=== PATIENT | male | born 1970 | race Caucasian/White ===

== ENCOUNTER 2023-10-26 11:30 | Day surgery (SDC) | payer OTHER, SELFPAY ==
[2023-10-26] VITALS (8 sets, daily range): BP systolic 100–145; BP diastolic 83–96; BMI 52.2
[2023-10-26] MEDS: NSS 440 ML IV (12:19)
[2023-10-26] MEDS: LASIX 20 MG IV (14:16)
--- NOTE | 2023-10-26 14:23 | ITS.CL.CATH ---
Auto Glass Installer - Catheterization
Cardiac Catheterization
Procedure Report:
LEFT HEART CATHETERIZATION
Date of Procedure: October 26, 2023
Procedures performed:
1: Coronary angiography
2: Left ventriculography
Primary Care Physician: Dr. Edwar Sandoval
Primary Bridges And Buildings Supervisor: Dr. Sukh Guzman
INDICATION: The patient is a 53-year-old man with a past medical history significant for morbid obesity and hypertension who presents with new exertional chest discomfort. Echocardiography performed on October 20 showed severe aortic valvular
stenosis with a mean gradient of 46 mmHg and preserved LV systolic function with severe left ventricular hypertrophy. The patient does report that he has been told he had a murmur in the past however has not had prior echoes.
ACCESS: The patient was prepped and draped in usual sterile fashion. A 6 Turkmen sheath was placed in the right radial artery using the Seldinger over the wire technique.
HEMODYNAMIC FINDINGS (mmHg):
LV(s/d,EDP): 223/18, 36
Ao(s/d,m): 120/90, 107
Aortic valve mean pullback gradient: 68 mmHg
ANGIOGRAPHIC FINDINGS:
Single-plane Left Ventriculography in SAGASTUME Projection: Preserved LV systolic function with no clear regional wall motion abnormality. Visually estimated ejection fraction 55%. No significant mitral gravitation.
Coronary Angiography:
Dominance: Right
Left Main: Normal
Left Anterior Descending: The left anterior descending artery is a medium caliber vessel that gives rise to a large high first diagonal branch and a small second diagonal branch. These vessels are patent without focal obstructive disease.
Ramus intermedius: Small to medium caliber, widely patent.
Left Circumflex: The left circumflex is a nondominant system that gives rise to 1 major branching obtuse marginal branch. This vessel is widely patent with no focal disease.
Right Coronary: The right coronary artery is a large-caliber dominant vessel that gives rise to a large caliber posterior descending artery and very large caliber posterior left ventricular branch system. These vessels are all widely patent.
Fluoroscopy Time (min): 6.6
Radiation Dose (mGy): 661
DAP (Gy.cm2): 62
Closure device: None. A TR band was applied for hemostasis at the right wrist.
Complications: None.
ASSESSMENT:
1: Normal coronary arteries.
2: Severe aortic valve stenosis with elevated left ventricular filling pressures.
CONCLUSIONS and RECOMMENDATIONS:
1: Expedited CT surgical evaluation for CABG. With his BMI over 50 he is high risk for everything. Given his young age I feel the optimal therapy would be a mechanical aortic valve replacement.
Gerry Quintero M.D.
Copy to: Dr. Edwar Sandoval
== END 2023-10-26 16:45 | disposition home or self-care (01) ==
LOC: CATH 11:30
PROVIDERS: ATTENDING PHYSICIAN Internal Medicine Interventional Cardiology; OTHER PHYSICIAN Internal Medicine Cardiovascular Disease; PRIMARYCARE PHYSICIAN Family Medicine; REFERRING PHYSICIAN Internal Medicine Cardiovascular Disease
DX: I35.0 Nonrheumatic aortic (valve) stenosis (principal); R07.89 Other chest pain; E66.01 Morbid (severe) obesity due to excess calories; I51.7 Cardiomegaly; Z68.43 Body mass index [BMI] 50.0-59.9, adult
CPT/HCPCS: 93458; C1769; C1894; Q9967

== ENCOUNTER 2023-12-07 04:59 | Inpatient (IN) | payer OTHER, SELFPAY ==
[2023-11-24 08:29] VITALS: BMI 52.1
[2023-11-24 08:57] LABS: % Basophils 0.7 % (0-2); % Eosinophils 3.3 % (0-6); % Immature Granulocytes 0.5 % (0-0.5); % Lymphocytes 28.7 % (20.5-51.1); % Neutrophils 56.8 % (42.2-75.2); Absolute Basophils 0.1 10^3/uL (0-0.2); Absolute Eosinophils 0.3 10^3/uL (0-0.7); Absolute Lymphocytes 2.4 10^3/uL (1.2-3.4); Absolute Monocytes 0.8 10^3/uL (0.1-0.6); Absolute Neutrophils 4.7 10^3/uL (1.4-6.5); Hematocrit 40.3 % (39.0-52.0); Hemoglobin 13.8 g/dL (13.0-18.0); Mean Corp Hgb Conc. 34.2 g/dL (33.0-37.0); Mean Corpuscular Hgb 30.3 pg (27.0-31.0); Mean Corpuscular Volume 88.4 fL (80.0-94.0); Nucleated Red Blood Cells % 0 % (-); Platelet Count 240 10^3/uL (130-400); Red Blood Cell Count 4.56 10^6/uL (4.70-6.10); Red Cell Dist. Width 13.2 % (11.5-14.5); White Blood Cell Count 8.3 10^3/uL (4.8-10.8)
[2023-11-24 09:11] LABS: INR 1.06; PT 13.8 Sec (11.4-14.6)
[2023-11-24 09:12] LABS: APTT 34.4 Sec (23.4-35.0)
[2023-11-24 09:19] LABS: ALT (SGPT) 84 U/L (0-50); AST (SGOT) 41 U/L (17-59); Albumin 4.4 g/dl (3.5-5.0); Alkaline Phosphatase 73 U/L (38-126); Blood Urea Nitrogen 18 mg/dl (9-20); Calcium 9.4 mg/dl (8.4-10.2); Carbon Dioxide 29 mmol/L (22-30); Chloride 101 mmol/L (98-107); Direct Bilirubin 0.2 mg/dl (0.0-0.4); Estimated Creatinine Clearance > 125 ml/min; Glucose 146 mg/dl (70-99); Potassium 4.1 mmol/L (3.5-5.1); Sodium 139 mmol/L (135-145); Total Bilirubin 0.4 mg/dl (0.2-1.3); Total Protein 7.5 g/dl (6.3-8.2); eGFR > 60.00
--- NOTE | 2023-11-24 09:59 | CM ---
Chart reviewed. Reviewed preoperative and postoperative instructions and restrictions. Gave patient 2 soaps, along with showering guidelines. Patient is independent of ADLS, lives with his mother in a 2 STH, 2 YARIEL, 0 DME. Patient does have a
CPAP machine, he will bring with him when he comes in for surgery. Patient is agreeable to a home visit with CT Transitional RN. Plan is for the patient to return home with CT Transitional RN.
[2023-11-24 10:01] LABS: Urine Albumin 2+ (Neg - Trace); Urine Bilirubin Negative (Negative); Urine Character Clear (Clear); Urine Color Yellow; Urine Glucose Negative (Negative); Urine Ketone Negative (Negative); Urine Leukocyte Negative (Negative); Urine Nitrite Negative (Negative); Urine Occult Blood Negative (Negative); Urine Urobilinogen Negative (Neg - 1+)
[2023-11-24 11:15] LABS: Urine Red Blood Cell None Seen /HPF (0-2); Urine Squamous Cell 0-2 /LPF (Few); Urine White Cell None Seen /HPF (0-5)
[2023-11-24 12:02] LABS: Glycohemoglobin (HgbA1c) 7.3 % (4.0-5.6)
[2023-12-07 05:12] VITALS: BP 149/95
[2023-12-07 05:30] VITALS: BP 139/96
[2023-12-07 05:31] VITALS: BMI 50.9
[2023-12-07] MEDS: LOPRESSOR 25 MG PO (05:56)
[2023-12-07] MEDS: MAGNESIUM OXIDE 500 MG PO (05:56)
[2023-12-07] MEDS: PROTONIX 40 MG PO (05:56)
[2023-12-07] MEDS: BACTROBAN 2% OINTMENT 1 APPLIC NASAL ×2 (05:59→20:02)
--- NOTE | 2023-12-07 06:09 | PTCARENOTE ---
pt admitted to 2264. Admits to 2 showers and NPO since midnight. clipped, washed with CHG wipes. full admission completed. pt does admit to having 6-10 drinks every weekend. CTPA notified. all questions answered, preop teaching given. awaiting cvor
--- NOTE | 2023-12-07 06:19 | W.CVOR.SURPR ---
CVOR Surgeon Immed Pre Op
-
I have examined this patient prior to performance of the scheduled procedure.
The patient's condition is unchanged from the time of the dictated/written History and
Physical and the patient is able to undergo the scheduled procedure.
Pt. opted for a MECHANICAL AVR
[2023-12-07 07:04] LABS: ACT+ - POC 107 Seconds (82-134)
[2023-12-07 07:06] LABS: Glucose - POC 157 mg/dl (65-99); HCO3 - POC 27 mmol/L (21-29); Hematocrit - POC 39 % PCV (42-52); Hemodilution- POC Yes; Hemoglobin Calculated - POC 13.2; O2 Saturation %Calculated-POC 99.4 5 (92-96); PCO2 - POC 52 mmHg (35-45); PO2 - POC 171 mmHg (80-100); Potassium - POC 3.4 mmol/L (3.6-5.0); Sodium - POC 144 mmol/L (135-145); pH - POC 7.32 (7.35-7.45)
[2023-12-07 07:20] LABS: Urine Albumin 2+ (Neg - Trace); Urine Bilirubin Negative (Negative); Urine Character Slightly Cloudy (Clear); Urine Color Yellow; Urine Glucose Negative (Negative); Urine Ketone Trace (Negative); Urine Leukocyte Negative (Negative); Urine Nitrite Negative (Negative); Urine Occult Blood Negative (Negative); Urine Specific Gravity 1.025 (<1.030); Urine Urobilinogen Negative (Neg - 1+)
[2023-12-07 08:28] LABS: Urine Bacteria Few (Negative); Urine Red Blood Cell 0-2 /HPF (0-2)
[2023-12-07 08:54] LABS: ACT+ - POC 788 Seconds (82-134)
[2023-12-07 09:22] LABS: B.E. - POC 0.8 mmol/L; Glucose - POC 209 mg/dl (65-99); HCO3 - POC 26 mmol/L (21-29); Hematocrit - POC 28 % PCV (42-52); Hemodilution- POC Yes; Hemoglobin Calculated - POC 9.7; Ionized Calcium - POC 1.05 mmol/L (1.12-1.27); O2 Saturation %Calculated-POC 98.9 5 (92-96); PCO2 - POC 44 mmHg (35-45); PO2 - POC 133 mmHg (80-100); Sodium - POC 139 mmol/L (135-145); pH - POC 7.38 (7.35-7.45)
[2023-12-07 09:31] LABS: ACT+ - POC 735 Seconds (82-134)
[2023-12-07 09:54] LABS: B.E. - POC -0.1 mmol/L; Glucose - POC 208 mg/dl (65-99); HCO3 - POC 25 mmol/L (21-29); Hematocrit - POC 33 % PCV (42-52); Hemodilution- POC Yes; Hemoglobin Calculated - POC 11.2; Ionized Calcium - POC 1.09 mmol/L (1.12-1.27); O2 Saturation %Calculated-POC 99.8 5 (92-96); PCO2 - POC 43 mmHg (35-45); PO2 - POC 218 mmHg (80-100); Potassium - POC 4.2 mmol/L (3.6-5.0); Sodium - POC 141 mmol/L (135-145); pH - POC 7.38 (7.35-7.45)
[2023-12-07 09:58] LABS: ACT+ - POC 549 Seconds (82-134)
[2023-12-07 10:22] LABS: B.E. - POC -1.3 mmol/L; Glucose - POC 192 mg/dl (65-99); HCO3 - POC 24 mmol/L (21-29); Hematocrit - POC 34 % PCV (42-52); Hemodilution- POC Yes; Hemoglobin Calculated - POC 11.7; O2 Saturation %Calculated-POC 99.9 5 (92-96); PCO2 - POC 40 mmHg (35-45); PO2 - POC 304 mmHg (80-100); Sodium - POC 142 mmol/L (135-145); pH - POC 7.38 (7.35-7.45)
[2023-12-07 10:27] LABS: ACT+ - POC 555 Seconds (82-134)
--- NOTE | 2023-12-07 10:53 | CM ---
Patient in OR today for planned CT Surgery.
Reviewed initial assessment. Pt. resides w/ parents in a private, 2 story home w/ 2 YARIEL.
Functionally, patient is indep. at baseline w/ ADLs, mobility.
Anticipate DC to home w/ CT Transitional Care RN.
CM to follow.
[2023-12-07 11:34] LABS: ACT+ - POC 467 Seconds (82-134)
[2023-12-07 11:35] LABS: B.E. - POC -2.1 mmol/L; Glucose - POC 148 mg/dl (65-99); HCO3 - POC 23 mmol/L (21-29); Hematocrit - POC 28 % PCV (42-52); Hemodilution- POC Yes; Hemoglobin Calculated - POC 9.4; Ionized Calcium - POC 1.17 mmol/L (1.12-1.27); O2 Saturation %Calculated-POC 98.7 5 (92-96); PCO2 - POC 42 mmHg (35-45); PO2 - POC 125 mmHg (80-100); Potassium - POC 4.5 mmol/L (3.6-5.0); Sodium - POC 142 mmol/L (135-145); pH - POC 7.36 (7.35-7.45)
[2023-12-07 12:05] LABS: B.E. - POC 0.5 mmol/L; Glucose - POC 143 mg/dl (65-99); HCO3 - POC 25 mmol/L (21-29); Hematocrit - POC 32 % PCV (42-52); Hemodilution- POC Yes; Hemoglobin Calculated - POC 10.8; Ionized Calcium - POC 1.16 mmol/L (1.12-1.27); O2 Saturation %Calculated-POC 99.9 5 (92-96); PCO2 - POC 40 mmHg (35-45); PO2 - POC 321 mmHg (80-100); Potassium - POC 3.8 mmol/L (3.6-5.0); Sodium - POC 145 mmol/L (135-145); pH - POC 7.41 (7.35-7.45)
[2023-12-07 12:06] LABS: ACT+ - POC 523 Seconds (82-134)
[2023-12-07 13:09] LABS: ACT+ - POC 118 Seconds (82-134)
[2023-12-07 13:12] LABS: Glucose - POC 120 mg/dl (65-99); HCO3 - POC 24 mmol/L (21-29); Hematocrit - POC 32 % PCV (42-52); Hemodilution- POC Yes; Ionized Calcium - POC 1.13 mmol/L (1.12-1.27); O2 Saturation %Calculated-POC 99.3 5 (92-96); PCO2 - POC 45 mmHg (35-45); PO2 - POC 156 mmHg (80-100); Potassium - POC 3.7 mmol/L (3.6-5.0); Sodium - POC 146 mmol/L (135-145); pH - POC 7.34 (7.35-7.45)
--- NOTE | 2023-12-07 13:47 | W.IMMPOSTOP ---
Addendum entered and electronically signed by Avery Brown MD 12/07/23 18:48:
[id number]
Original Note:
Surgical Immed Post Op Note
-
CARDIAC SURGERY OPERATIVE NOTE:
Preoperative Dx:
Severe bicuspid AV stenosis w/ P/M: 80.5/45.6 on ECHO, 68 on cath
Severe concentric LVH
LVEF 55%
Morbid obesity w/ BMI 50.9
Postoperative Dx:
Same
Procedures:
1) Median sternotomy
2) AVR (#25 On-X)
3) Redo-AVR (#23 On-X)
Surgeon:
Avery Brown
Assistants:
Sumi Hough P.A.-C.; visitor services assistant during initial AVR
Arun Juarez P.A.-C.; visitor services assistant during secondary AVR; [id number] closure
Dania Kay P.A.-C.; visitor services assistant during completion/decannulation/sternal closure; [id number]-[id number] closure
Anesthesia:
Jah Sun M.D.; Shree RodriguezN.Lucille
Perfusion:
Sumi Cisneros C.C.P.; XC: 174min, CPB: 222
Findings:
Profoundly calcified bicuspid AV w/ complete fusion of left/right coronary commissures with extension of calcifications along aortomitral curtain and ventricular surface of anterior mitral valve from both the left and noncoronary cusps. There was
significant circumferential calcifications of the annulus requiring extensive annular debridement
Annulus initially sized for a 25mm On-X, but this was slightly oversized. It was my hope that valve would slightly distend patients hamilton annular/LVOT size to accomodate this valve given his body habitus. Annular enlargement was considered, but
the debrided annular and LVOT size were congruent. Therefore, I did not feel this would offer any benefits in terms of postoperative gradients, especially given EOA of mechanical valves.
Upon placement of initial AVR, I was happy with the placement. The valve was slightly angulated along the non-coronary cusp, but well-seated.
Patient from CPB w/o incident. Valve functioning well w/o PVL/AI except for expected washing jets. Unfortunately, despite aggressive annular and subvalvular debridement, there was a small mobile echodensity present just inferior to the
AVR along the anterior annulus. There was no method to safely address this small mobile echodensity without removal of the index AVR.
Cardioplegic arrest re-established.
Index AVR excised. Mobile component identified and debrided. Redo AVR performed w/ #23mm On-X for TRUE intra-annular placement of valve and to protect against risk of annular distruption given additional manipulation required.
Post-LARRY: well seated AVR w/o AI/PVL, mean gradient 11mmHg, normal biventricular function
Complications:
None significant
Pt. required AVR x 2 (see findings)
Implants:
On-X; SN [id number]
CT x 2 (mediastinal)
Temporary epicardial V-wires x 2
Sternal wires x 8
Sternal 'square' plate and 4 - 14mm screws
Sternal 'butterfly' plate and 4 - 12mm screws
Transfusions:
None
Condition:
72 sinus w/ isoelectric STs
103/68. 61/39. CVP 31. CO/CI: 4.4/1.8. 97%
GTTS: levophed 4, insulin 1, precedex 0.6
Stable/guarded to CVICU
--- NOTE | 2023-12-07 14:15 | CON.INTV ---
Consultation
Consultation Request
Date/Time Consultation Requested: 12/07/2023 - 1322
Date/Time Consultation Performed: 12/07/2023 - 1400
Requesting Provider: CORNELIA Pina
Performing Provider: Ankush Steinberg MD
Reason for Consultation: post-op AVR
Medical History
-
Chief Complaint: Elective AVR
History of Present Illness:
53-year-old male with a past medical history of severe aortic stenosis, severe morbid obesity, HAMMAD on CPAP and hypertension/hyperlipidemia who presents with aortic valve replacement. Patient known to cardiothoracic surgery with Dr. Brown with last
office visit on 11/08/2023. Recent echo in October showed preserved LVEF with severe concentric LVH and normal RV function, with a calcified aortic valve with a peak/mean gradient of 80.5/45.6 mmHg and a calculated FLACO of 1 cm�. He had a subsequent
cardiac cath on 10/26/2023 showing an aortic valve mean by pullback of 68 mmHg with normal coronaries. He is ventricular filling pressures were elevated. Surgical aortic valve replacement was discussed and the risks and benefits were reviewed.
Today, he underwent aortic valve replacement however once he was from cardioplegia to arrest there was a small mobile echodensity present just inferior to the AVR along the anterior annulus. CPD was reestablished, the index AVR was
excised, the mobile component was identified and treated and a redo AVR was performed with postoperative LARRY showing a well-seated AVR without AI/PVL. He was transferred to the CVICU on the ventilator and critical care services now consulted for
additional management/recommendations.
When I saw the patient he was still intubated on PC�AC, at a rate of 12, inspiratory pressure of 30, PEEP of 5 and 100% FiO2. Due to his saturations being at 90%, PEEP was raised to 7. His peak pressure was 38, he was breathing at 12 breaths/min
and his VTe was 605 mL. He was on Precedex at 0.6 mcg/kg/hr, and Levophed at 4mcg/min. His PA pressure was 45/26, heart rate 75, SpO2 93% and CVP 16, with BP 128/91. He was still too sedated to ask him any questions.
PMhx: Severe aortic stenosis, hypertension, hyperlipidemia, morbid obesity, HAMMAD on CPAP, history of headaches
PSHx: Hernia surgery as an infant, wisdom teeth extraction
Past Medical History
Past Medical History: Other (Above as per HPI)
Past Surgical History: Other (Above as per HPI)
Social History
Tobacco: Former Smoker (Quit 2003, 1.5 PPD X 20 years)
Alcohol: Occasional (5-6 beers on Tuesday night)
Drug: None
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
Family History
Family History: CAD (Father), Hypertension (Mother) and Other (Father: COPD, AVR, thyroid disease)
Allergies / Home Medications
Allergies
Allergy/AdvReac Type Severity Reaction Status Date / Time
amoxicillin Allergy Hives Verified 11/17/23 10:04
Home Medications
�Medication �Instructions �Recorded �Confirmed �Last Taken �Type
aspirin 81 mg chewable tablet 81 mg DAILY 10/26/23 12/07/23 12/06/23 11:00 History
furosemide 20 mg tablet (Lasix) 20 mg PO DAILY #90 tabs 10/26/23 12/07/23 12/06/23 11:00 Rx
losartan 100 mg tablet 100 mg PO DAILY 10/26/23 12/07/23 12/04/23 11:00 History
metoprolol succinate 25 mg 25 mg PO DAILY 10/26/23 12/07/23 12/06/23 11:00 History
tablet,extended release 24 hr
cetirizine 10 mg tablet (Zyrtec) 10 mg PO DAILY 11/17/23 12/07/23 12/06/23 11:00 History
Review of Systems
-
Unable to Obtain full review of systems at this time due to: Patient Intubation
Vitals / Labs / Diagnostic Testing
Vital Signs
Temp Pulse Resp BP Pulse Ox
98.5 F 80 22 139/96 95
12/07/23 05:30 12/07/23 05:30 12/07/23 05:30 12/07/23 05:30 12/07/23 05:30
Diagnostic Testing:
Physical Exam
-
HEENT: Normocephalic and Anicteric
Cardiovascular: S1/S2 and Peripheral Edema (No lower extremity edema)
Respiratory: Wheeze (Negative), Rales (Negative), Rhonchi (Negative) and Other (ETT in place; mechanical breath sounds heard bilaterally)
GI: Soft, Distended (Abdominal obesity), Non Tender and Normal Bowel Sounds
Neurology: Other (Unresponsive/still sedated from recent operation)
Skin: Warm and Dry
General: Chills (Negative)
Assessment
-
Assessment: 53-year-old male with a past medical history of severe aortic stenosis, severe morbid obesity, HAMMAD on CPAP and hypertension/hyperlipidemia who presents with aortic valve replacement. Patient known to cardiothoracic surgery with
Kevin with last office visit on 11/08/2023. Recent echo in October showed preserved LVEF with severe concentric LVH and normal RV function, with a calcified aortic valve with a peak/mean gradient of 80.5/45.6 mmHg and a calculated FLACO of 1 cm�. He
had a subsequent cardiac cath on 10/26/2023 showing an aortic valve mean by pullback of 68 mmHg with normal coronaries. He is ventricular filling pressures were elevated. Surgical aortic valve replacement was discussed and the risks and benefits
were reviewed. On 12/07/2023, he underwent aortic valve replacement however once he was from cardioplegia to arrest there was a small mobile echodensity present just inferior to the AVR along the anterior annulus. CPD was reestablished,
the index AVR was excised, the mobile component was identified and treated and a redo AVR was performed with postoperative LARRY showing a well-seated AVR without AI/PVL. He was transferred to the CVICU on the ventilator and critical care services
now consulted for additional management/recommendations.
Chronic conditions UROLOGY NURSE: Severe aortic stenosis, hypertension, hyperlipidemia, morbid obesity, HAMMAD on CPAP, history of headaches
Impression:
#Severe bicuspid aortic valve stenosis with severe concentric LVH s/p AVR complicated by mobile echodensity just inferior to the AVR along the annual anterior annulus with redo AVR � POD #0
#Anemia
#Acute on chronic respiratory failure with hypercapnia (baseline pCO2 likely around 50)
#Morbid obesity
#Hx of HAMMAD on CPAP
#Former tobacco smoker (Quit 2003, 1.5 PPD X 20 years)
Plan:
Ventilator settings reviewed
FiO2 will be weaned to keep SpO2 >90-94%
Minute ventilation will be adjusted
Arterial blood gases will be monitored
Spontaneous breathing trial will be attempted with hopeful extubation after anesthesia/sedation wear off
prn nebulized bronchodilators
Pulmonary artery catheter parameters will be followed
Pressors/antihypertensive/inotropes/diuretics will be provided as needed
MAP>65
Replete electrolytes with K>4, Mg>2
Monitor chest tube output (mediastinal chest tubes x2)
Monitor hemoglobin
Monitor platelet count and coags
Transfuse blood product if needed
CT surgery managing chest tubes
Monitor blood sugar with goal BG 140-180
Insulin drip per protocol
Aspiration precautions
VAP prevention protocol
DVT prophylaxis
Early nutrition
Early mobilization
Critical care statement: A total of 41 minutes of critical care time was provided for this patient today. This includes management of ventilator, spontaneous breathing trial, arterial blood gases, pressors, of unstable vital signs, evaluation of the
patient at bedside, reviewing the patient's pertinent medical records including radiographs, microbiology, laboratory evaluations, and discussion with primary team and critical care nursing.
[2023-12-07] MEDS: ANCEF 15 MG IV (14:20)
--- NOTE | 2023-12-07 14:20 | PTCARENOTE ---
Patient received from cvor status post median sternotomy with AVR # 25 and redo AVR #23 Onx mechanical valve. Received intubated and sedated on precedex gtt on vent P ac settings: peep increased to 7 and HOB elevated as tolerated for maximum lung
vent/perfusion. Usual lines. NSR with pac's. Temp epicardial v wire presemt and not currnly pacing. Chest tubes x 2 meds to -20cm wall suction: mo air leak and no dumping. See flowrecord for remaining assessments.
[2023-12-07 14:22] LABS: Glucose - Point of Care 119 mg/dl (70-99)
[2023-12-07 14:29] LABS: Hematocrit 32.1 % (39.0-52.0); Hemoglobin 11.3 g/dL (13.0-18.0); Platelet Count 263 10^3/uL (130-400)
[2023-12-07 14:31] LABS: B.E. -1.8 mmol/L; Ionized Calcium 1.17 mMOL/L (1.15-1.33); PCO2 58 mmHg (35-48); PO2 63 mmHg (83-108); Potassium 4.8 mMOL/L (3.5-5.1); Sodium 140 mMOL/L (136-145); pH 7.26 (7.35-7.45)
[2023-12-07 14:40] LABS: INR 1.34; PT 16.7 Sec (11.4-14.6)
[2023-12-07 14:41] LABS: APTT 29.5 Sec (23.4-35.0)
[2023-12-07 14:46] LABS: Blood Urea Nitrogen 24 mg/dl (9-20); Estimated Creatinine Clearance 106 ml/min; Glucose 112 mg/dl (70-99); Magnesium 3.5 mg/dl (1.6-2.3)
--- NOTE | 2023-12-07 14:56 | PN.DE.MGMTRT ---
Insulin Management
- -
12/07/2023: Diabetes Management Consult
53 year old male w/PMH: Severe , Severe morbid obesity, HAMMAD on CPAP, HTN, HLD and Newly Dx T2DM, A1C 7.3%, Cr 1.1, eGFR>60
Pt presented to this morning for AVR.
Pt is not available for interview at this time, he is in the OR for Procedure today.
Glucose stable, recent POC 112. He will be managed on glycemic protocol post-op x48 Hrs.
Will followup tomorrow
Diabetes History
- -
Type of Diabetes: 2
Pre-Admission Diabetes Regimen
12/07/23
14:21
Creatinine 1.1
Lab Results
Hemoglobin A1c 7.3 % (4.0-5.6) H 11/24/23 08:39
Insulin Pump Settings
IP Diabetes Regimen
12/07/23
14:21
Glucose 112 H
POC Glucose 119 H
Patient Education
[2023-12-07] MEDS: DILAUDID 0.5 MG IV ×2 (15:08→23:00)
[2023-12-07] MEDS: PRECEDEX 100 IV (15:17)
[2023-12-07 15:45] LABS: B.E. 0.4 mmol/L; HCO3 24.6 mmol/L (21-28); O2 Saturation % 99.1 % (94-98); PCO2 37 mmHg (35-48); PO2 109 mmHg (83-108); pH 7.43 (7.35-7.45)
[2023-12-07 15:46] LABS: Glucose - Point of Care 120 mg/dl (70-99)
[2023-12-07] MEDS: CALCIUM CHLORIDE 10% SYRINGE 50 MG IV (16:13)
[2023-12-07] MEDS: CALCIUM CHLORIDE 10% SYRINGE 50 ML IV (16:13)
[2023-12-07] MEDS: NEURONTIN PO ×2 (16:19)
[2023-12-07] MEDS: NOVOLOG FLEXPEN SC ×2 (16:19→18:45)
[2023-12-07] MEDS: NSS 500 IV (16:20)
[2023-12-07] MEDS: TYLENOL PO (16:20)
[2023-12-07] MEDS: PACERONE PO (16:20)
[2023-12-07 16:49] LABS: Glucose - Point of Care 145 mg/dl (70-99)
--- NOTE | 2023-12-07 16:51 | CON.CAR ---
Addendum entered and electronically signed by Sukh Mccurdy MD 12/07/23 17:28:
Attending addendum: patient seen post op Mechanical AVR for treatment of severe symptomatic aortic stenosis. Outside records and CT surgical consult reviwed.
Gen: Intubated and sedated
HEENT: NC/AT, ET tube in place
Lungs: Chest tubes in place and on ventilator No wheezing
CV: RRR distant click
Ext: Trace edema
RECOMMENDATIONS:
-Hemodynamically stable
-Continue antihypertensive medications
-Will follow
Original Note:
Consultation
Consultation Request
Date/Time Consultation Performed: 12/07/23
Requesting Provider: Dr. Brown
Performing Provider: Phyllis Valenzuela PA-C for Dr. Mccurdy
Reason for Consultation: post op AVR
Medical History
-
Chief Complaint: AVR
History of Present Illness:
Patient is a 53 yo M with PMH of HTN, severe conc LVH, obesity, HAMMAD on CPAP who underwent mechanical AVR today. Primary Sizing Sprayer is Dr. Guzman of [facility]. cath pre surgery was with normal coronary arteries. Cardiology asked to follow post
operatively. Patient remains intubated, sedated at this time.
PMH:
HTN
Severe conc LVH
Obesity
HAMMAD on CPAP
Past Medical History
Past Medical History: Other (in HPI)
Social History
Tobacco: Former Smoker
Alcohol: Occasional
Employment: Not Employed (recently due to symptoms)
Family History
Family History: Other (AVR in father)
Allergies / Home Medications
Allergy/AdvReac Type Severity Reaction Status Date / Time
amoxicillin Allergy Hives Verified 11/17/23 10:04
�Medication �Instructions �Recorded �Confirmed �Type
aspirin 81 mg chewable tablet 81 mg DAILY 10/26/23 12/07/23 History
furosemide 20 mg tablet (Lasix) 20 mg PO DAILY #90 tabs 10/26/23 12/07/23 Rx
losartan 100 mg tablet 100 mg PO DAILY 10/26/23 12/07/23 History
metoprolol succinate 25 mg 25 mg PO DAILY 10/26/23 12/07/23 History
tablet,extended release 24 hr
cetirizine 10 mg tablet (Zyrtec) 10 mg PO DAILY 11/17/23 12/07/23 History
Review of Systems
-
Unable to obtain full review of systems at this time due to: Patient Intubation
Physical Exam
Vital Signs
Temp Pulse Resp BP Pulse Ox
98.6 F 78 16 139/96 93
12/07/23 15:26 12/07/23 16:15 12/07/23 16:15 12/07/23 05:30 12/07/23 16:15
Lab Results
12/07/23 14:21
Physical Exam
General: No Apparent Distress, Comfortable and Intubated
HEENT: Normocephalic and Moist Mucous Membranes
Respiratory: Clear and Non Labored Respirations
Cardiac: S1/S2 and Regular Rhythm; Negative Murmur
Musculoskeletal: No Clubbing, No Cyanosis and Edema (trace of B/L LE)
Skin: Warm, Dry and Other (Sternotomy dressing c/d/i)
Neuro: Sedated
Impression / Plan
-
Primary Sizing Sprayer: Dr. Guzman of [facility]
Assessment:
Severe bicuspid s/p mechanical AVR 12/07/23
Post op anemia
Normal coronary arteries by preop cath
HTN
Severe conc LVH
Obesity
HAMMAD on CPAP
ECHO 10/21/2023: EF 55 to 60%, severe concentric LVH, normal RV function, severe with peak/mean gradients 80/45 mmHg with FLACO 1.0 cm�
Plan:
-s/p mechanical AVR 12/06. initially 25mm was placed, felt to fit suboptimally and changed to 23mm.
-remains intubated, sedated
-on cardene @2.5, wean as able
-CI 2.14
-follow hgb. initiate coumadin when ok per surgery
-post op EKG SR with prior lateral T wave abnormality now more evident, particularly in V4-V6. follow closely
-d/w nursing, CT PA/SPONGE CLIPPER
Data Reviewed
-
EKG: Tracing Personally Visualized and interpreted
Medical Tests (Nuc Med, Echo etc): Report Reviewed by me
Labs: Labs Reviewed by me
Old Records: Reviewed
--- NOTE | 2023-12-07 17:45 | PTCARENOTE ---
RASS -1. Precedex gtt off. Following simple commands and moving all extremeties. CPAP wean trial ventilator initiated. Jillian, SECURITY SYSTEMS SPECIALIST aware.
[2023-12-07 18:14] LABS: Glucose - Point of Care 134 mg/dl (70-99)
[2023-12-07 18:32] LABS: B.E. -0.6 mmol/L; HCO3 24.9 mmol/L (21-28); Ionized Calcium 1.29 mMOL/L (1.15-1.33); O2 Saturation % 95.6 % (94-98); PCO2 43 mmHg (35-48); PO2 71 mmHg (83-108); Potassium 4.5 mMOL/L (3.5-5.1); pH 7.37 (7.35-7.45)
[2023-12-07 18:34] LABS: Hematocrit 34.8 % (39.0-52.0); Hemoglobin 12.4 g/dL (13.0-18.0); Platelet Count 248 10^3/uL (130-400)
--- NOTE | 2023-12-07 18:35 | PTCARENOTE ---
ABG results to Jillian, CT DATA SOFTWARE ENGINEER aware of same. Cardene gtt also weaned off. Plan is to give breathing treatment nebulized while on vent, then reassess extubation. Dr. Brown also updated with same. See flowrecord for remaining assessments
[2023-12-07] MEDS: VENTOLIN NEBULES 2.5 MG INH (18:41)
[2023-12-07 19:16] LABS: Glucose - Point of Care 143 mg/dl (70-99)
--- NOTE | 2023-12-07 19:23 | PTCARENOTE ---
1905 PT extubated oriented x4 complains of 3/10 pain. on 5L NC 92%. VSS all surgical sights CDi, CTx2 w/ minimal drainage. see worklist for detailed assessment
[2023-12-07] MEDS: FLEXERIL 5 MG PO (20:00)
[2023-12-07] MEDS: ANCEF 5 IV (20:01)
[2023-12-07] MEDS: SENOKOT-S 1 TABLET PO (20:01)
[2023-12-07] MEDS: LOW STRENGTH ASPIRIN 81 MG PO (20:01)
[2023-12-07] MEDS: ROXICODONE 5 MG PO (20:01)
--- NOTE | 2023-12-07 21:00 | PTCARENOTE ---
report received from previous RN, assumed care of pt. walking rounds done. pt in bed, AAOx4. pt denies any pain at this time. NSR on monitor, HR 90's. B/L radial and DP pulses palpable. heart tones clear. epicardial V wires intact, set to back up
VVI. left radial art line intact. SBP 110's-120's. RIJ cordis + [employer] intact, KVOs infusing. CVP ~15. PAPs ~30's/20's. last CI 2.84. B/L breath sounds present. POX 95% on 5LNC. IS encouraged. CT x2 intact to -20cm wall suction, drainage WNL, no air
leak present. fairchild catheter intact, draining viktoriya urine, UO adequate. hypoactive bowel sounds present. pt tolerating ice and sips of water w meds. Insulin gtt infusing per glycemic protocol. all surgical sites stable, dressings CDI. see worklist
for full assessment, VS, and interventions. pt resting between care.
[2023-12-07 21:07] LABS: Glucose - Point of Care 135 mg/dl (70-99)
[2023-12-07] MEDS: TYLENOL 1000 MG PO (23:00)
[2023-12-07] MEDS: NEURONTIN 100 MG PO (23:00)
[2023-12-07] MEDS: PACERONE 200 MG PO (23:00)
--- NOTE | 2023-12-07 23:00 | PTCARENOTE ---
no changes in assessment, pt VSS. NSR 90's. normotensive. POX 95% on CPAP w 5L. CT output and UO WNL. Insulin gtt maintained per protocol. last CI 3.05. all surgical sites stable. pt sleeping between care.
[2023-12-07 23:07] LABS: Glucose - Point of Care 124 mg/dl (70-99)
[2023-12-08] VITALS (11 sets, daily range): BP systolic 114–169; BP diastolic 60–99; PULSE 93; O2SAT 95–97; BMI 50.9
[2023-12-08 00:22] LABS: Glucose - Point of Care 123 mg/dl (70-99)
--- NOTE | 2023-12-08 00:23 | RESPNOTE ---
pt required help putting on home CPAP post op. O2 6 lpm added through machine
[2023-12-08 01:10] LABS: Glucose - Point of Care 122 mg/dl (70-99)
[2023-12-08 02:13] LABS: Glucose - Point of Care 122 mg/dl (70-99)
--- NOTE | 2023-12-08 02:24 | W.PN.CT ---
Today's Communication / Plan
-
- POD #1
- Doing well. No major events overnight. Extubated to NC @ 1900 hrs, on CPAP HS. De-lined this AM
- Tele review: NSR
- Gtt's: Levophed off, Precedex off, insulin gtt @ 4 U
- PA cath: CI 3.47 CO 8.42 RAP 13 PA / SVR 684
- CT 2M 130/190 in 12/24 hrs
- UOP 510/1010 in 12/24 hrs
- PW: V wires x2
- wean down/off O2, IS use reinforced. CPAP HS.
- Continue current meds: ASA, Amio, Mag Ox, Protonix, metoprolol 12.5
- continue outpatient meds: Zyrtec
- Bowel regimen
Assessment / Plan
-
Severe bicuspid (p/m 80.5/45.6 on TTE, 68 on LHC) s/p AVR #25 Fareed and redo AVR #[address] Brown 12/07/23 POD #1
Post LARRY: well seated AVR without AI/PVL, mean gradient 11 mmHg, normal BiV function
-Severe concentric LVH
-HTN
-HLD
-Newly Dx T2DM, A1C 7.3%
-morbid obesity
-HAMMAD/CPAP
-Low testosterone
-RH fracture
-LW fracture
-headaches
-EtoH use
-Former tobacco use
-Acute post op pain
-Acute blood loss anemia
Subjective
Procedure
s/p AVR #25 Fareed and redo AVR #[address] Brown on 12/07/23
-
Date of Service: December 08, 2023
No significant overnight events. Extubated 1900 hrs yesterday. Tolerated CPAP overnight
Objective Data
-
PT 16.7 Sec (11.4-14.6) H 12/07/23 14:21
INR 1.34 12/07/23 14:21
APTT 29.5 Sec (23.4-35.0) 12/07/23 14:21
Vital Signs
Vital Signs
Temp Pulse Resp BP Pulse Ox
100.1 F 92 16 139/96 95
12/08/23 02:00 12/08/23 02:00 12/08/23 02:00 12/07/23 05:30 12/08/23 02:00
CT Intake/Output/Weight
12/07/23 12/07/23 12/08/23
06:59 18:59 06:59
Intake Total 376.1 / 606.6 230.5 / 606.6
Output Total 560 / 1070 510 / 1070
Balance -183.9 / -463.4 -279.5 / -463.4
SaO2: 95
Physical Exam
-
General: Awake, Oriented and AOx3
Cardiovascular: Regular rate & rhythm, No Murmurs and No Rub
Respiratory: Clear and Decreased Breath Sounds
Sternum: Stable
Incision: Clean, Dry and Intact
Extremities: Edema +1 and No Erythema
Data Reviewed
-
Lab Results: Results Reviewed
Medications: Active Meds Reviewed
Chest X-Ray: Report Reviewed
ECG: Report Reviewed
[2023-12-08 03:38] LABS: Glucose - Point of Care 130 mg/dl (70-99)
[2023-12-08] MEDS: ANCEF 5 IV ×2 (03:44→11:30)
[2023-12-08 03:50] LABS: Hematocrit 33.6 % (39.0-52.0); Hemoglobin 11.5 g/dL (13.0-18.0); Mean Corp Hgb Conc. 34.2 g/dL (33.0-37.0); Mean Corpuscular Hgb 30.7 pg (27.0-31.0); Mean Corpuscular Volume 89.6 fL (80.0-94.0); Mean Platelet Volume 10.2 fL (7.4-10.4); Platelet Count 231 10^3/uL (130-400); Red Blood Cell Count 3.75 10^6/uL (4.70-6.10); Red Cell Dist. Width 13.7 % (11.5-14.5); White Blood Cell Count 17.7 10^3/uL (4.8-10.8)
[2023-12-08 04:16] LABS: Blood Urea Nitrogen 29 mg/dl (9-20); Calcium 8.9 mg/dl (8.4-10.2); Carbon Dioxide 26 mmol/L (22-30); Chloride 108 mmol/L (98-107); Estimated Creatinine Clearance > 125 ml/min; Glucose 124 mg/dl (70-99); Magnesium 2.9 mg/dl (1.6-2.3); Potassium 4.3 mmol/L (3.5-5.1); Sodium 141 mmol/L (135-145); eGFR > 60.00
[2023-12-08 05:50] LABS: Glucose - Point of Care 152 mg/dl (70-99)
--- NOTE | 2023-12-08 06:00 | PTCARENOTE ---
AM labs and EKG reviewed with CT PA. orders received to de-lined. left radial art line and RIJ Travis d/c'd without incident. devorah d/c'd. pt assisted OOB to chair without difficulty. weight obtained. VSS. pt resting comfortably. CT output WNL.
Insulin gtt maintained. all surgical sites stable.
[2023-12-08] MEDS: TYLENOL 1000 MG PO ×3 (07:08→22:28)
[2023-12-08 07:59] LABS: Glucose - Point of Care 158 mg/dl (70-99)
--- NOTE | 2023-12-08 07:59 | W.PN.ANS.POP ---
Anesthesia Post Operative
- Anesthesia Post Op Note
Vital Signs Stable-See Nursing Note: Yes
Airway Patent: Yes
Adequate Pain Control: Yes
Change in Mental Status: No
Current Postoperative Nausea & Vomiting: No
Anesthesia Complications: No
General Anesthetic Recall: No
Unplanned Admission: No
Post Op Hydration Adequate: Yes
--- NOTE | 2023-12-08 08:37 | PN.DE.MGMTRT ---
Insulin Management
- -
12/08/2023: Diabetes Management F/U:
53 year old male who presented to on 12/06 for AVR. PMH: Severe , Severe morbid obesity, HAMMAD on CPAP, HTN, HLD and Newly Dx T2DM, A1C 7.3%, Cr 1.1, eGFR>60. Pt states that he was aware of pre-diabetes dx and has been monitoring his blood sugars
twice a day. Cr 0.9, eGFR>60
Pt is POD #1 s/p AVR. He is awake, alert, oriented, sitting up in chair, offers no complaints and able to discuss diabetes mgt
Currently on glycemic protocol, glucose stable and in range of 122 to 158, requiring 3.5 to 8 units of insulin/hr
Discussed current A1C, average blood sugar and choice of oral diabetes meds for glucose management.
Will start Metformin 500 mg BID and Jardiance 10mg daily. 1st doses in AM
Attempted to provide instructions for New glucose monitor but pt is unable to participate or return demonstrate meter technique due to weakness of BUE hands.
Will attempt again tomorrow.
Diabetes History
- -
Type of Diabetes: 2
Pre-Admission Diabetes Regimen
12/07/23 12/08/23
14:21 03:37
Creatinine 1.1 0.9
Lab Results
Hemoglobin A1c 7.3 % (4.0-5.6) H 11/24/23 08:39
Insulin Pump Settings
IP Diabetes Regimen
12/07/23 12/07/23 12/07/23
14:21 15:35 16:47
Glucose 112 H
POC Glucose 119 H 120 H 145 H
12/07/23 12/07/23 12/07/23
18:02 19:14 21:06
Glucose
POC Glucose 134 H 143 H 135 H
12/07/23 12/08/23 12/08/23
23:06 00:21 01:08
Glucose
POC Glucose 124 H 123 H 122 H
12/08/23 12/08/23 12/08/23
02:11 03:36 03:37
Glucose 124 H
POC Glucose 122 H 130 H
12/08/23 12/08/23
05:49 07:58
Glucose
POC Glucose 152 H 158 H
Meal type: Dinner
Amount consumed: 100%
Patient Education
[2023-12-08] MEDS: BACTROBAN 2% OINTMENT 1 APPLIC NASAL ×2 (08:52→22:28)
[2023-12-08] MEDS: LIDOCAINE 4% PATCH 1 PATCH TOPICAL (08:52)
[2023-12-08] MEDS: NOVOLOG FLEXPEN 4 UNITS SC ×2 (08:52→11:34)
[2023-12-08] MEDS: PROTONIX 40 MG PO (08:53)
[2023-12-08] MEDS: LASIX 40 MG IV (08:53)
[2023-12-08] MEDS: LOPRESSOR 12.5 MG PO ×2 (08:53→11:33)
[2023-12-08] MEDS: SENOKOT-S 1 TABLET PO ×2 (08:53→20:01)
[2023-12-08] MEDS: PACERONE 200 MG PO ×3 (08:53→22:28)
[2023-12-08] MEDS: MAGNESIUM OXIDE 500 MG PO ×2 (08:53→20:01)
[2023-12-08] MEDS: LOW STRENGTH ASPIRIN 81 MG PO (08:53)
[2023-12-08] MEDS: NEURONTIN 200 MG PO ×3 (08:54→22:28)
--- NOTE | 2023-12-08 09:14 | W.PN.CARDCBS ---
Today's Communication / Plan
-
Plan:
-s/p mechanical On-X 23mm Valve on 12/07/23
-Extubated and sitting in chair
-Resume losartan in next day or so when renal fx is stable
-Initiate Coumadin when ok per surgery: On-X valve so INR can be run lower
-Newly dx diabetic : Awaiting Diabetic POUND ATTENDANT evaluation and recommendation
Impression / Plan
-
Primary Lap Cutter Truer Operator: Dr. Guzman of [facility]
Assessment:
Severe bicuspid s/p mechanical AVR 12/07/23: On-X 23 mm valve
Post op anemia
Normal coronary arteries by preop cath
HTN
Severe conc LVH
Obesity
HAMMAD on CPAP
Diabetes
ECHO 10/21/2023: EF 55 to 60%, severe concentric LVH, normal RV function, severe with peak/mean gradients 80/45 mmHg with FLACO 1.0 cm�
Plan:
-s/p mechanical AVR 12/06. initially 25mm was placed, felt to fit suboptimally and changed to 23mm.
-Resume losartan today or tomorrow when renal function is stable.
-Extubated and sitting in chair
-Initiate Coumadin when ok per surgery
-post op EKG SR with prior lateral T wave abnormality. Normal Cors by cardiac cath.
-Diabetic POUND ATTENDANT has been consulted. Will need initiation of therapy
Progress Note - Lap Cutter Truer Operator
Subjective
Date of Service: December 08, 2023
Extubated and sitting in chair. States that his hands feel tight but otherwise he is doing 'okay'
Objective
Labs:
12/08/23 03:37
12/08/23 03:37
Labs
Hgb 11.5 g/dL (13.0-18.0) L 12/08/23 03:37
Hct 33.6 % (39.0-52.0) L 12/08/23 03:37
Plt Count 231 10^3/uL (130-400) 12/08/23 03:37
PT 16.7 Sec (11.4-14.6) H 12/07/23 14:21
INR 1.34 12/07/23 14:21
APTT 29.5 Sec (23.4-35.0) 12/07/23 14:21
Sodium 141 mmol/L (135-145) 12/08/23 03:37
Potassium 4.3 mmol/L (3.5-5.1) 12/08/23 03:37
BUN 29 mg/dl (9-20) H 12/08/23 03:37
Creatinine 0.9 mg/dL (0.7-1.3) 12/08/23 03:37
Glucose 124 mg/dl (70-99) H 12/08/23 03:37
Vital Signs and I&O:
Vital Signs
Temp Pulse Resp BP Pulse Ox
99.2 F 96 16 135 96
12/08/23 08:30 12/08/23 09:00 12/08/23 08:30 12/08/23 08:53 12/08/23 08:35
Vital Signs
Temp Pulse Resp BP Pulse Ox
99.2 F 96 16 13574 96
12/08/23 08:30 12/08/23 09:00 12/08/23 08:30 12/08/23 08:53 12/08/23 08:35
Intake & Output
12/05/23 12/06/23 12/07/23 12/08/23
23:59 23:59 23:59 23:59
Intake Total 505.1 / 529.1 490.0 / 490.0
Output Total 900 / 970 560 / 560
Balance -394.9 / -440.9 -70.0 / -70.0
Physical Exam
Physical Exam
Gen: NC/AT, sclera anicteric
HEENT: NC/AT, Sclera anicteric
Lungs: Chest tube in place. Decreased breath sounds at base
CV: Regular. Click present but distant
Abd: Obese. Bowel sounds present
Ext: trace edema
[2023-12-08 09:37] LABS: Glucose - Point of Care 132 mg/dl (70-99)
--- NOTE | 2023-12-08 09:39 | PTCARENOTE ---
Patient received from maintenance mechanic 2nd shift resting oob in chair, AAO x 3. NSR via cm, SaO2 @ 96% on 5lnc. RIJ Cordis w/kvo infusing. Epicardial V-wire to pulse generator at backup rate 40bpm, no spikes noted. Mediastinal chest tubes x 2, Y-connected to one
pleurevac, placed to -20cm suction w/no air leak noted. All procedural sites stable. Patient updated to plan of care for the day, in agreement. See work list for full assessment and interventions performed.
[2023-12-08] MEDS: NOVOLIN R INSULIN INFUSION 100 IV ×2 (10:52→22:31)
[2023-12-08] MEDS: NSS IV (11:00)
[2023-12-08] MEDS: ROXICODONE 5 MG PO ×3 (11:04→19:58)
[2023-12-08 11:07] LABS: Glucose - Point of Care 141 mg/dl (70-99)
--- NOTE | 2023-12-08 11:15 | CM ---
Daryld Darin thru patient's insurance, [employer]- [phone]. Estimated cost of both medications would be $200/90 d mail order or $100/30 d retail pharmacy.
Pt. would qualify for free co pay card.
Will place co pay card of choice medication in chart prior to DC.
--- NOTE | 2023-12-08 11:39 | PTCARENOTE ---
VS obtained, assessment stable. Patient remains oob in chair, perusing menu. Medicated for pain, see MAR.
[2023-12-08 12:23] LABS: Glucose - Point of Care 129 mg/dl (70-99)
[2023-12-08] MEDS: FLEXERIL 5 MG PO ×2 (12:24→20:01)
--- NOTE | 2023-12-08 14:04 | W.PN.INTV ---
Addendum entered and electronically signed by Ankush Steinberg MD 12/09/23 01:35:
CDI Inquiry Response: HAMMAD only. (this is for encounter on 12/08/2023).
Original Note:
Today's Communication / Plan
Recommendations
Up OOB as tolerated
Continue CPAP with sleep
Encourage IS
Wean off O2, otherwise check walking pulse ox prior to discharge unless resting SpO2 is >95% on room air
Patient remains CVICU status as he is still on insulin gtt with q1-2 hour POCT BG. Lot Technician/Pulmonary service will continue to follow along while he remains in CVICU. Once he is downgraded then we will sign off. I will make an outpatient appt
for him to see me in office to discuss his HAMMAD and make adjustments if needed.
Assessment
-
Assessment: 53-year-old male with a past medical history of severe aortic stenosis, severe morbid obesity, HAMMAD on CPAP and hypertension/hyperlipidemia who presents with aortic valve replacement. Patient known to cardiothoracic surgery with
Kevin with last office visit on 11/08/2023. Recent echo in October showed preserved LVEF with severe concentric LVH and normal RV function, with a calcified aortic valve with a peak/mean gradient of 80.5/45.6 mmHg and a calculated FLACO of 1 cm�. He
had a subsequent cardiac cath on 10/26/2023 showing an aortic valve mean by pullback of 68 mmHg with normal coronaries. He is ventricular filling pressures were elevated. Surgical aortic valve replacement was discussed and the risks and benefits
were reviewed. On 12/07/2023, he underwent aortic valve replacement however once he was from cardioplegia to arrest there was a small mobile echodensity present just inferior to the AVR along the anterior annulus. CPD was reestablished,
the index AVR was excised, the mobile component was identified and treated and a redo AVR was performed with postoperative LARRY showing a well-seated AVR without AI/PVL. He was transferred to the CVICU on the ventilator and critical care services
now consulted for additional management/recommendations.
Chronic conditions NATURAL DEVELOPER: Severe aortic stenosis, hypertension, hyperlipidemia, morbid obesity, HAMMAD on CPAP, history of headaches
Impression:
#Severe bicuspid aortic valve stenosis with severe concentric LVH s/p AVR complicated by mobile echodensity just inferior to the AVR along the annual anterior annulus with redo AVR � POD #1
#Anemia
#Acute on chronic respiratory failure with hypercapnia (baseline pCO2 likely around 50)
#Morbid obesity
#Hx of HAMMAD on CPAP
#Former tobacco smoker (Quit 2003, 1.5 PPD X 20 years)
Plan:
Patient extubated to nasal cannula, and is breathing comfortably on 3L/min
Continue weaning down O2 flow rate to keep SpO2 >90-94%
If unable to wean off or if SpO2 <96% on room air at rest, then he needs a walking pulse oximetry prior to discharge
prn nebulized bronchodilators
Continue CPAP with sleep
I will make arrangements to see him in office to manage his HAMMAD as he says no doctor manages this for him currently
Pressors weaned
MAP>65
Replete electrolytes with K>4, Mg>2
Monitor chest tube output (mediastinal chest tubes x2)
Monitor hemoglobin
Monitor platelet count and coags
Transfuse blood product if needed to keep Hb>7, plt>50k
CT surgery managing chest tubes
Monitor blood sugar with goal BG 140-180
Insulin drip per protocol
Aspiration precautions
DVT prophylaxis
Early nutrition
Early mobilization
Patient remains CVICU status as he is still on insulin gtt with q1-2 hour POCT BG. Lot Technician/Pulmonary service will continue to follow along while he remains in CVICU. Once he is downgraded then we will sign off. As stated above, I will make an
outpatient appt for him to see me in office to discuss his HAMMAD and make adjustments if needed.
Critical care statement: A total of 42 minutes of critical care time was provided for this patient today. This includes management of ventilator, spontaneous breathing trial, arterial blood gases, pressors, of unstable vital signs, evaluation of the
patient at bedside, reviewing the patient's pertinent medical records including radiographs, microbiology, laboratory evaluations, and discussion with primary team and critical care nursing.
Subjective Dataa
Subjective Data
Date of Service:
Date of Service: December 08, 2023
Chief Complaint: Lot Technician Follow Up
Subjective:
Seen today. Doing well. Mother at [facility]. Pt has mediastinal chest tubes x2 in place. On insulin gtt at 0.8 units/hr. He endorses RLE numbness as well as his left arm. He feels it is due to how he was positioned for the surgery. He has
post-operative chest pain. No SOB, HAMMOND, abd pain, N/V, f/c. He is on 3L/min NC, breathing comfortably.
Review of Systems
General: Other (negative unless mentioned above)
Objective Data
Data Reviewed
Vital Signs / I&O / Oxygen:
Vital Signs
Temp Pulse Resp BP Pulse Ox
98.4 F 94 17 150/88 96
12/08/23 11:36 12/08/23 13:30 12/08/23 11:36 12/08/23 11:33 12/08/23 11:36
Intake and Output
12/07/23 12/08/23 12/09/23
06:59 06:59 06:59
Intake Total 722.1 / 977.1 577 / 577
Output Total 1390 / 1390 975 / 975
Balance -667.9 / -412.9 -398 / -398
SaO2 [P-A/C] 96
SaO2 96
Nasal Cannula flow liters per 4
minute
Physical Exam
General: Comfortable, Chills (negative) and Other (Morbidly obese male in NAD)
HEENT: Normocephalic and Anicteric
Cardiovascular: S1-S2 and Peripheral Edema (negative)
Respiratory: Wheeze (negative), Crackles (bilateral (L>R)) and Rhonchi (negative)
GI: Soft, Distended (Abdominal obesity), Non Tender and Normal Bowel Sounds
Neurology: AO x 3 and Tremors (negative)
Skin: Warm, Dry and Jaundice (negative)
Labs/Micro/Reports
Lab Data
12/08/23 03:37
12/08/23 03:37
Laboratory Results
12/07/23 12/07/23 12/07/23
14:21 14:22 15:33
PT 16.7 H
INR 1.34
APTT 29.5
pH 7.26 L 7.43
pCO2 58 H 37
pO2 63 L 109 H
HCO3 26.0 24.6
O2 Delivery Level
12/07/23 12/07/23 12/07/23
18:20 18:20 18:20
PT
INR
APTT
pH Cancelled 7.37
pCO2 Cancelled 43
pO2 Cancelled
HCO3
O2 Delivery Level
12/07/23 12/07/23 12/07/23
18:20 18:20 18:20
PT
INR
APTT
pH
pCO2
pO2 71 L
HCO3 Cancelled 24.9
O2 Delivery Level Cancelled
[2023-12-08 14:10] LABS: Glucose - Point of Care 183 mg/dl (70-99)
--- NOTE | 2023-12-08 14:30 | PN.CDI ---
CDI
- -
CDI:
Physician Documentation Request
Admit Date: 12/07/23 04:59
Dear Doctor Idris,
Clinical Indicators:
Documentation includes diagnosis of HAMMAD and morbid obesity.
PMH includes HAMMAD on CPAP
BMI 50.9
12/06 Pulmonary Consult, 'Acute on chronic respiratory failure with hypercapnia (baseline pCO2 likely around 50)'
Please clarify if there is a relationship between the documented diagnoses of HAMMAD and morbid obesity:
HAMMAD with obesity hypoventilation syndrome
HAMMAD only
Other, please specify
Use of terms such as suspected, likely, concern for, or probable (associated with a specific diagnosis that is being evaluated, monitored, or treated as if it exists) are acceptable and can be coded in the inpatient setting, when documented at the
time of discharge.
Thank you,
TRACIE Tucker RN
CDI Specialist
available via tiger text
Please use your independent medical judgment in providing your response.
[2023-12-08 15:51] LABS: Glucose - Point of Care 132 mg/dl (70-99)
--- NOTE | 2023-12-08 16:10 | PTCARENOTE ---
VS obtained, assessment stable. Patient assisted back oob to chair for dinner. C/O sternal discomfort, mediated for such.
[2023-12-08 17:09] LABS: Glucose - Point of Care 143 mg/dl (70-99)
[2023-12-08 17:59] LABS: Glucose - Point of Care 137 mg/dl (70-99)
[2023-12-08] MEDS: COUMADIN 7.5 MG PO (18:12)
[2023-12-08] MEDS: NOVOLOG FLEXPEN 8 UNITS SC (18:12)
[2023-12-08 18:46] LABS: Glucose - Point of Care 155 mg/dl (70-99)
[2023-12-08] MEDS: LOPRESSOR 50 MG PO (20:01)
[2023-12-08 20:16] LABS: Glucose - Point of Care 151 mg/dl (70-99)
[2023-12-08 22:33] LABS: Glucose - Point of Care 116 mg/dl (70-99)
[2023-12-09] VITALS (22 sets, daily range): BP systolic 118–165; BP diastolic 58–138; PULSE 91; O2SAT 94–96; BMI 52.0
[2023-12-09 00:24] LABS: Glucose - Point of Care 128 mg/dl (70-99)
[2023-12-09 01:37] LABS: Glucose - Point of Care 85 mg/dl (70-99)
[2023-12-09 03:24] LABS: Glucose - Point of Care 125 mg/dl (70-99)
[2023-12-09 03:33] LABS: Hematocrit 31.3 % (39.0-52.0); Hemoglobin 10.9 g/dL (13.0-18.0); Mean Corp Hgb Conc. 34.8 g/dL (33.0-37.0); Mean Corpuscular Hgb 30.2 pg (27.0-31.0); Mean Corpuscular Volume 86.7 fL (80.0-94.0); Mean Platelet Volume 9.9 fL (7.4-10.4); Platelet Count 212 10^3/uL (130-400); Red Blood Cell Count 3.61 10^6/uL (4.70-6.10); Red Cell Dist. Width 13.8 % (11.5-14.5); White Blood Cell Count 20.3 10^3/uL (4.8-10.8)
[2023-12-09 03:43] LABS: INR 1.44; PT 17.4 Sec (11.4-14.6)
[2023-12-09 04:16] LABS: Blood Urea Nitrogen 25 mg/dl (9-20); Calcium 8.8 mg/dl (8.4-10.2); Carbon Dioxide 28 mmol/L (22-30); Chloride 101 mmol/L (98-107); Estimated Creatinine Clearance > 125 ml/min; Glucose 119 mg/dl (70-99); Magnesium 2.5 mg/dl (1.6-2.3); Potassium 3.8 mmol/L (3.5-5.1); Sodium 136 mmol/L (135-145); eGFR > 60.00
[2023-12-09 04:57] LABS: Glucose - Point of Care 158 mg/dl (70-99)
--- NOTE | 2023-12-09 05:53 | W.PN.CT ---
Addendum entered and electronically signed by Avery Brown MD 12/09/23 13:22:
I saw and examined the patient.
The PA's note was reviewed and I agree with the note.
Comment:
POD#2 s/p AVR
AF today - given amiodarone protocol - converted to NSR (< 1hr AF)
Coumadin tonight 7.5mg, INR 1.4
[address]
OOB/IS/ambulate
Original Note:
Today's Communication / Plan
-
-pod #2
-no issues overnight
-CT output: 2 meds 105/295 serosang fluid in 12/24 hrs
-gave 40 po KCL this am for K 3.8
-encourage IS, OOB
Assessment / Plan
-
Severe bicuspid (p/m 80.5/45.6 on TTE, 68 on LHC) s/p AVR #25 [place] and redo AVR #[address] Brown 12/07/23 POD #2
Post LARRY: well seated AVR without AI/PVL, mean gradient 11 mmHg, normal BiV function
-Severe concentric LVH
-HTN
-HLD
-Newly Dx T2DM, A1C 7.3%
-morbid obesity
-HAMMAD/CPAP
-Low testosterone
-RH fracture
-LW fracture
-headaches
-EtoH use
-Former tobacco use
-Acute post op pain
-Acute postop blood loss anemia- stable without transfusion
-Acute postop atelectasis
-Acute postop hypovolemia with subsequent hypervolemia
Discussed patient care with: Nursing and Care Team
Subjective
Procedure
s/p AVR #25 [place] and redo AVR #[address] Brown on 12/07/23
-
Date of Service: December 09, 2023
Objective Data
-
Lab Results
12/09/23 03:24
12/09/23 03:24
PT 17.4 Sec (11.4-14.6) H 12/09/23 03:24
INR 1.44 12/09/23 03:24
APTT 29.5 Sec (23.4-35.0) 12/07/23 14:21
Vital Signs
Vital Signs
Temp Pulse Resp BP Pulse Ox
98 F 89 18 114/95 96
12/09/23 03:11 12/09/23 03:00 12/09/23 03:11 12/08/23 22:36 12/08/23 16:00
CT Intake/Output/Weight
12/08/23 12/08/23 12/09/23
06:59 18:59 06:59
Intake Total 346.0 / 977.1 915 / 915
Output Total 830 / 1390 1265 / 1870 605 / 1870
Balance -484.0 / -412.9 -350 / -955 -605 / -955
SaO2: 96
Physical Exam
-
General: Awake and AOx3
Cardiovascular: Regular rate & rhythm, No Murmurs and No Rub
Respiratory: Decreased Breath Sounds
Sternum: Stable
Incision: Clean, Dry and Intact
Extremities: Other (trace edema, 2+DP b/l)
Abdomen: soft, nondistended, + bowel sounds
Data Reviewed
-
Lab Results: Results Reviewed
Medications: Active Meds Reviewed
Chest X-Ray: Report Reviewed and Image Reviewed
ECG: Report Reviewed and Image Reviewed
[2023-12-09 06:27] LABS: Glucose - Point of Care 111 mg/dl (70-99)
--- NOTE | 2023-12-09 06:49 | PN.DE.MGMTRT ---
Insulin Management
- -
12/09/2023: Diabetes Management F/U:
53 year old male who presented to on 12/06 for AVR. PMH: Severe , Severe morbid obesity, HAMMAD on CPAP, HTN, HLD and Newly Dx T2DM, A1C 7.3%, Cr 1.1, eGFR>60. Pt states that he was aware of pre-diabetes dx and has been monitoring his blood sugars
twice a day. Cr 0.9, eGFR>60
POD #2 s/p AVR. Pt is awake, alert, oriented, sitting up in chair, offers no complaints and able to discuss diabetes mgt
Currently on glycemic protocol, glucose stable w/o hypoglycemia, range of 85 to 158, requiring 0.6 to 14 units of insulin/hr
Will transition off insulin infusion today to oral regimen. Give Lantus 15 units x1 NOW. Turn insulin drip off 1 hr after giving Lantus.
Start Metformin 500 mg BID and Jardiance 10mg daily, 1st dose for both meds today in AM
Attempted to provide instructions for New glucose monitor yesterday but pt was unable to participate or return demonstrate meter technique due to weakness of BUE hands. Dania- COLT will see pt again today for monitor instructions.
Diabetes History
- -
Type of Diabetes: 2
Pre-Admission Diabetes Regimen
12/09/23
03:24
Creatinine 0.8
Lab Results
Hemoglobin A1c 7.3 % (4.0-5.6) H 11/24/23 08:39
Insulin Pump Settings
IP Diabetes Regimen
12/08/23 12/08/23 12/08/23
07:58 09:35 11:06
Glucose
POC Glucose 158 H 132 H 141 H
12/08/23 12/08/23 12/08/23
12:21 14:09 15:49
Glucose
POC Glucose 129 H 183 H 132 H
12/08/23 12/08/23 12/08/23
17:05 17:58 18:45
Glucose
POC Glucose 143 H 137 H 155 H
12/08/23 12/08/23 12/09/23
20:14 22:30 00:23
Glucose
POC Glucose 151 H 116 H 128 H
12/09/23 12/09/23 12/09/23
01:36 03:23 03:24
Glucose 119 H
POC Glucose 85 125 H
12/09/23 12/09/23
04:55 06:26
Glucose
POC Glucose 158 H 111 H
Meal type: Dinner
Meal type: Lunch
Meal type: Breakfast
Amount consumed: 100%
Amount consumed: 100%
Amount consumed: 100%
Patient Education
[2023-12-09] MEDS: NOVOLOG FLEXPEN 8 UNITS SC (07:14)
[2023-12-09] MEDS: KCL 40 MEQ PO (07:14)
[2023-12-09] MEDS: TYLENOL 1000 MG PO ×3 (07:14→21:53)
[2023-12-09 07:16] LABS: Glucose - Point of Care 91 mg/dl (70-99)
--- NOTE | 2023-12-09 08:30 | PTCARENOTE ---
Assumed care of patient. Walking rounds completed with previous RN. Pt assessed while he was sitting in the chair. Pt appears very stoic. Rates sternal pain 5/10-see MAR. Denies nausea and shortness of breath. HYLTON with equal strength throughout.
NSR-ST with rates in the 90s-100s. BP 163/84. Heart tones distant. Bilateral radial and DP pulses palpable. No edema noted. Epicardial v-wire insulated. POX 97% on 2L NC, titrated to RA, POX 93%. Lungs diminished throughout. IS encouraged-1000mL
achieved. Occasional productive cough with clear sputum. Mediastinal CTx2 to -20cm suction draining serous fluid. No air leaks, tidaling, crepitus noted. Abdomen soft, round, obese. +BS. Pt reports passing gas. Pt voiding viktoriya urine in the urinal.
Sternal incision covered with Aquacel-CDI. Chest tube dressing CDI. Right IJ cordis intact with insulin gtt and KVO. Left forearm 18g PIV intact. See MAR for medication administration. See worklist for complete nursing assessment. Plan of care
reviewed and pt in agreement.
[2023-12-09 08:31] LABS: Glucose - Point of Care 148 mg/dl (70-99)
[2023-12-09] MEDS: NSS 500 IV (08:36)
[2023-12-09] MEDS: BACTROBAN 2% OINTMENT 1 APPLIC NASAL ×2 (08:36→20:14)
[2023-12-09] MEDS: GLUCOPHAGE 500 MG PO ×2 (08:37→16:56)
[2023-12-09] MEDS: FLEXERIL 5 MG PO (08:37)
[2023-12-09] MEDS: PROTONIX 40 MG PO (08:37)
[2023-12-09] MEDS: NEURONTIN 200 MG PO ×3 (08:37→21:53)
[2023-12-09] MEDS: LIDOCAINE 4% PATCH 1 PATCH TOPICAL (08:37)
[2023-12-09] MEDS: LOW STRENGTH ASPIRIN 81 MG PO (08:37)
[2023-12-09] MEDS: SENOKOT-S 1 TABLET PO ×2 (08:37→20:13)
[2023-12-09] MEDS: JARDIANCE 10 MG PO (08:37)
[2023-12-09] MEDS: ZYRTEC 10 MG PO (08:37)
[2023-12-09] MEDS: PACERONE 200 MG PO ×3 (08:38→21:54)
[2023-12-09] MEDS: ROXICODONE 5 MG PO (08:41)
[2023-12-09] MEDS: LOPRESSOR 50 MG PO ×2 (08:41→20:13)
[2023-12-09] MEDS: MAGNESIUM OXIDE PO (08:49)
--- NOTE | 2023-12-09 08:49 | PTCARENOTE ---
Afib on tele. Pt states he feels palpitations. BP stable. CT NURSING TEACHER notified. IV lopressor and amio bolus administered.
[2023-12-09] MEDS: LOPRESSOR PO (08:53)
[2023-12-09] MEDS: LOPRESSOR 5 MG IV (09:07)
--- NOTE | 2023-12-09 09:15 | PTCARENOTE ---
Mediastinal chest tubes x2 d/c per orders. Sutures tied. Pt tolerated. New dressing applied. Pt assisted back out to the chair d/t comfort.
[2023-12-09] MEDS: CORDARONE 103 MG IV (09:22)
--- NOTE | 2023-12-09 09:23 | W.PN.CARDCBS ---
Today's Communication / Plan
-
Plan:
-Amiodarone bolus as well as po. Consider IV if remains in afib
-Metoprolol dose has been titrated for HR control
-Coumadin started
-Diabetic PATTERNMAKER APPRENTICE WOOD has been consulted. Metformin and IV insulin started
-Resume losartan in am at reduced dose; 50 mg daily.
Impression / Plan
-
Primary Airbrush Artist: Dr. Guzman of [facility]
Assessment:
Atrial fibrillation: New post op
Severe bicuspid s/p mechanical AVR 12/07/23: On-X 23 mm valve
Post op anemia
Normal coronary arteries by preop cath
HTN
Severe conc LVH
Obesity
HAMMAD on CPAP
Diabetes
ECHO 10/21/2023: EF 55 to 60%, severe concentric LVH, normal RV function, severe with peak/mean gradients 80/45 mmHg with FLACO 1.0 cm�
Plan:
-Amiodarone bolus as well as po. Consider IV if remains in afib
-Metoprolol dose has been titrated for HR control
-Coumadin started
-Diabetic PATTERNMAKER APPRENTICE WOOD has been consulted. Will need initiation of therapy
-Resume losartan in am at reduced dose; 50 mg daily.
Progress Note - Airbrush Artist
Subjective
Date of Service: December 09, 2023
A little tired and washed out this am
Objective
Labs:
12/09/23 03:24
12/09/23 03:24
Labs
Hgb 10.9 g/dL (13.0-18.0) L 12/09/23 03:24
Hct 31.3 % (39.0-52.0) L 12/09/23 03:24
Plt Count 212 10^3/uL (130-400) 12/09/23 03:24
PT 17.4 Sec (11.4-14.6) H 12/09/23 03:24
INR 1.44 12/09/23 03:24
APTT 29.5 Sec (23.4-35.0) 12/07/23 14:21
Sodium 136 mmol/L (135-145) 12/09/23 03:24
Potassium 3.8 mmol/L (3.5-5.1) 12/09/23 03:24
BUN 25 mg/dl (9-20) H 12/09/23 03:24
Creatinine 0.8 mg/dL (0.7-1.3) 12/09/23 03:24
Glucose 119 mg/dl (70-99) H 12/09/23 03:24
Vital Signs and I&O:
Vital Signs
Temp Pulse Resp BP Pulse Ox
99.0 F 100 18 161/138 93
12/09/23 08:00 12/09/23 08:29 12/09/23 08:00 12/09/23 08:29 12/09/23 08:29
Vital Signs
Temp Pulse Resp BP Pulse Ox
99.0 F 100 18 161/138 93
12/09/23 08:00 12/09/23 08:29 12/09/23 08:00 12/09/23 08:29 12/09/23 08:29
Intake & Output
12/06/23 12/07/23 12/08/23 12/09/23
23:59 23:59 23:59 23:59
Intake Total 505.1 / 529.1 1132.0 / 1132.0 264 / 264
Output Total 900 / 970 2115 / 2115 595 / 595
Balance -394.9 / -440.9 -983.0 / -983.0 -331 / -331
Physical Exam
Physical Exam
Gen: NC/AT, sclera anicteric
HEENT: NC/AT, Sclera anicteric
Lungs: Chest tube in place. Decreased breath sounds at base
CV: Irreg Irregular. Click present but distant
Abd: Obese. Bowel sounds present
Ext: trace edema
[2023-12-09] MEDS: CORDARONE 518 MG IV (10:30)
[2023-12-09] MEDS: COZAAR 25 MG PO (10:36)
[2023-12-09 10:38] LABS: Glucose - Point of Care 113 mg/dl (70-99)
[2023-12-09] MEDS: LANTUS 0.149999999999999994 UNITS SC (11:22)
[2023-12-09 12:27] LABS: Glucose - Point of Care 101 mg/dl (70-99)
--- NOTE | 2023-12-09 12:49 | PTCARENOTE ---
Pt received from outgoing RN. Pt is Ox3 and appropriate. No complaints of pain after walking halls with cardiac rehab. Surgical sites assessed, scant drainage at sternal incision. Currently in NSR on Amio gtt at 1mg/min. 93% on RA, initially heard
crackles at bases but after coughing pt was able to clear. Encouraged continued use of IS, currently getting volumes up to 1500mls. 15 units lantus given, insulin gtt turned off 1 hr later. Start AC/HS accu checks.
[2023-12-09] MEDS: NOVOLOG FLEXPEN SC (13:29)
--- NOTE | 2023-12-09 14:18 | PTCARENOTE ---
Diabetes Education- A1C 7.3%. Provided with and instructions given on the Contour NExt Gen glucometer. Lionel states his hands are still sore therefore he did not return demonstrate. he has monitored in the past. Discussed testing pattern,and expected
results, this information marked in take home education booklet. Discussed action and side effects of both metformin and Jardiance. I will folow up on Tuesday if Lionel is still at . His mom was also present.
--- NOTE | 2023-12-09 15:03 | CM ---
CM following for DC planning needs.
Met w/ patient and mother at bedside.
Patient reports that he is feeling well. He is hopeful for weekend DC.
Reviewed post op MD appointments, Cardiac Rehab and visit from [facility] Transitional Care RN.
Anticipate DC to home w/ [facility] Transitional [facility] RN.
CM to follow.
[2023-12-09 17:04] LABS: Glucose - Point of Care 109 mg/dl (70-99)
[2023-12-09] MEDS: COUMADIN 7.5 MG PO (18:23)
--- NOTE | 2023-12-09 20:00 | PTCARENOTE ---
Assumed care of pt at 1900. AAOx3, OOB in chair. NSR on glove operator. HR 90s. Room air, SaO2 96%. Amio gtt infusing through R IJ cordis @ 0.5mg/min. Surgical sites CDI. Pt without complaint at this time, call sanchez within reach. Assessment
documented.
[2023-12-09] MEDS: LOPRESSOR 25 MG PO (20:13)
[2023-12-09 22:05] LABS: Glucose - Point of Care 131 mg/dl (70-99)
--- NOTE | 2023-12-09 23:40 | PTCARENOTE ---
Assumed care of patient. Patient is asleep, easily arousable. MSAS 3. Patient is alert and oriented x4, pleasant. Denies pain/discomfort. NSR. HR 80s. V wires insulated. Audible heart tones. BP 131/78. Trace generalized edema. RIJ cordis maintained
with KVO. Amio gtt received at 05.mg/min. PIV maintained. CPAP. Oxygen saturation 95%. Upon auscultation, lung diminished at the bases. Abdomen round, obese. +BS. Passing gas, no BM per patient. Voids spontaneously. Standby assist when ambulating in
room. Sternal aquacell is clean, dry, intact. CT sites are clean, dry, intact. Patient went back to sleep.
[2023-12-10] VITALS (10 sets, daily range): BP systolic 119–159; BP diastolic 63–87; PULSE 79; O2SAT 95–99; BMI 51.8
[2023-12-10] MEDS: ROXICODONE 5 MG PO ×3 (00:01→20:20)
--- NOTE | 2023-12-10 03:15 | PTCARENOTE ---
Vital signs stable. NSR. HR 80s. BP 128/69. CPAP. Oxygen saturation 95%. Patient c/o pain earlier, administered PRN Roxicodone as ordered. Patient felt relief and went back to sleep.
[2023-12-10 03:39] LABS: Mean Corp Hgb Conc. 34.4 g/dL (33.0-37.0); Mean Corpuscular Hgb 30.8 pg (27.0-31.0); Mean Corpuscular Volume 89.6 fL (80.0-94.0); Mean Platelet Volume 10.1 fL (7.4-10.4); Platelet Count 237 10^3/uL (130-400); Red Blood Cell Count 3.57 10^6/uL (4.70-6.10); Red Cell Dist. Width 13.8 % (11.5-14.5); White Blood Cell Count 17.7 10^3/uL (4.8-10.8)
[2023-12-10 03:50] LABS: INR 1.82; PT 20.9 Sec (11.4-14.6)
[2023-12-10 04:05] LABS: Blood Urea Nitrogen 21 mg/dl (9-20); Carbon Dioxide 26 mmol/L (22-30); Chloride 100 mmol/L (98-107); Estimated Creatinine Clearance > 125 ml/min; Glucose 114 mg/dl (70-99); Magnesium 2.3 mg/dl (1.6-2.3); Potassium 4.2 mmol/L (3.5-5.1); Sodium 134 mmol/L (135-145); eGFR > 60.00
[2023-12-10] MEDS: TYLENOL 1000 MG PO ×3 (05:27→21:05)
[2023-12-10 06:54] LABS: Glucose - Point of Care 129 mg/dl (70-99)
--- NOTE | 2023-12-10 07:00 | PTCARENOTE ---
report received from nightshift RN. pt resting in OOB in chair, AAOX3. pt reports mild pain in back/shoulder. SR on telemetry heart rate in 80s. v wire insulated. amio gtt infusing per orders. pulses palpable in all extremities. trace edema. pt on
room air, sat 95%. lung sounds diminished in bases. active bowel sounds. voiding in urinal/bathroom. surgical sites CDI. see worklist for full nursing assessment and interventions.
--- NOTE | 2023-12-10 07:02 | W.PN.CT ---
Today's Communication / Plan
-
-pod #3
-no issues overnight, remains in NSR on Amio drip @ 0.5
-Lopressor increased to 75 bid. Cozaar to be restarted today
-weaned off O2 - pOx 95% on RA. IS [id number]
-got 7.5 and 7.5 mg of Coumadin for mechan. AVR. INR today 1.82
-continue to ambulate
Assessment / Plan
-
Severe bicuspid (p/m 80.5/45.6 on TTE, 68 on LHC) s/p AVR #25 [place] and redo AVR #[address] Brown 12/07/23 POD #3
Post LARRY: well seated AVR without AI/PVL, mean gradient 11 mmHg, normal BiV function
-Severe concentric LVH
-HTN
-HLD
-Newly Dx T2DM, A1C 7.3%
-morbid obesity
-HAMMAD/CPAP
-Low testosterone
-RH fracture
-LW fracture
-headaches
-EtoH use
-Former tobacco use
-Acute post op pain
-Acute postop blood loss anemia- stable without transfusion
-Acute postop atelectasis
-Acute postop hypovolemia with subsequent hypervolemia
Discussed patient care with: Nursing and Care Team
Subjective
Procedure
s/p AVR #25 [place] and redo AVR #[address] Brown on 12/07/23
-
Date of Service: December 10, 2023
Objective Data
-
Lab Results
12/10/23 03:18
12/10/23 03:18
PT 20.9 Sec (11.4-14.6) H 12/10/23 03:18
INR 1.82 12/10/23 03:18
APTT 29.5 Sec (23.4-35.0) 12/07/23 14:21
Vital Signs
Vital Signs
Temp Pulse Resp BP Pulse Ox
98.5 F 88 18 128/69 95
12/10/23 03:11 12/10/23 06:00 12/10/23 03:11 12/10/23 03:11 12/10/23 03:11
CT Intake/Output/Weight
12/09/23 12/10/23 12/10/23
18:59 06:59 18:59
Intake Total 388 / 1311.6 923.6 / 1311.6
Output Total 175 / 175
Balance 213 / 1136.6 923.6 / 1136.6
SaO2: 95
Physical Exam
-
General: Awake and AOx3
Cardiovascular: Regular rate & rhythm, No Murmurs and No Rub
Respiratory: Decreased Breath Sounds
Sternum: Stable
Incision: Clean, Dry and Intact
Extremities: Edema +1
Data Reviewed
-
Lab Results: Results Reviewed
Medications: Active Meds Reviewed
Chest X-Ray: Report Reviewed and Image Reviewed
ECG: Report Reviewed and Image Reviewed
[2023-12-10] MEDS: LIDOCAINE 4% PATCH 1 PATCH TOPICAL (07:55)
[2023-12-10] MEDS: NEURONTIN 200 MG PO ×3 (07:55→21:05)
[2023-12-10] MEDS: PROTONIX 40 MG PO (07:56)
[2023-12-10] MEDS: PACERONE 200 MG PO ×3 (07:56→21:05)
[2023-12-10] MEDS: SENOKOT-S 1 TABLET PO ×2 (07:56→20:20)
[2023-12-10] MEDS: COZAAR 50 MG PO (07:56)
[2023-12-10] MEDS: LOW STRENGTH ASPIRIN 81 MG PO (07:56)
[2023-12-10] MEDS: LOPRESSOR 75 MG PO ×2 (07:56→20:20)
[2023-12-10] MEDS: GLUCOPHAGE 500 MG PO ×2 (07:56→16:33)
[2023-12-10] MEDS: JARDIANCE 10 MG PO (07:56)
[2023-12-10] MEDS: ZYRTEC 10 MG PO (07:56)
[2023-12-10] MEDS: BACTROBAN 2% OINTMENT 1 APPLIC NASAL ×2 (07:57→20:19)
[2023-12-10] MEDS: FLEXERIL 5 MG PO ×2 (08:01→20:19)
[2023-12-10] MEDS: LASIX 40 MG IV (10:07)
--- NOTE | 2023-12-10 10:40 | W.PN.CARDCBS ---
Today's Communication / Plan
-
Back in sinus rhythm. Continue IV amiodarone and oral amiodarone 200 mg p.o. 3 times daily.
Continue Lopressor 75 mg p.o. twice daily.
Continue Coumadin.
Likely will need diuresis over the next 24-48 hours
Impression / Plan
-
Primary Parts Inspector: Dr. Guzman of [facility]
Assessment:
Atrial fibrillation: New post op
Severe bicuspid s/p mechanical AVR 12/07/23: On-X 23 mm valve
Post op anemia
Normal coronary arteries by preop cath
HTN
Severe conc LVH
Obesity
HAMMAD on CPAP
Diabetes
ECHO 10/21/2023: EF 55 to 60%, severe concentric LVH, normal RV function, severe with peak/mean gradients 80/45 mmHg with FLACO 1.0 cm�
Plan:
-Back in sinus rhythm. Remains on IV amiodarone. Continue oral amiodarone 200 mg p.o. 3 times daily. Continue metoprolol 75 mg p.o. twice daily.
-Coumadin started. INR at 1.82
-I suspect he will need diuresis over the next 24 to 48 hours
-Diabetic AUTOMATIC PACKER OPERATOR has been consulted. Will need initiation of therapy
-Continue losartan at 50 mg daily.
Progress Note - Parts Inspector
Subjective
Date of Service: December 10, 2023
Back in sinus rhythm. Remains on IV amiodarone.
Objective
Labs:
12/10/23 03:18
12/10/23 03:18
Labs
Hgb 11.0 g/dL (13.0-18.0) L 12/10/23 03:18
Hct 32.0 % (39.0-52.0) L 12/10/23 03:18
Plt Count 237 10^3/uL (130-400) 12/10/23 03:18
PT 20.9 Sec (11.4-14.6) H 12/10/23 03:18
INR 1.82 12/10/23 03:18
APTT 29.5 Sec (23.4-35.0) 12/07/23 14:21
Sodium 134 mmol/L (135-145) L 12/10/23 03:18
Potassium 4.2 mmol/L (3.5-5.1) 12/10/23 03:18
BUN 21 mg/dl (9-20) H 12/10/23 03:18
Creatinine 0.8 mg/dL (0.7-1.3) 12/10/23 03:18
Glucose 114 mg/dl (70-99) H 12/10/23 03:18
Vital Signs and I&O:
Vital Signs
Temp Pulse Resp BP Pulse Ox
98.6 F 79 18 119/63 96
12/10/23 08:00 12/10/23 10:07 12/10/23 08:00 12/10/23 10:07 12/10/23 09:02
Vital Signs
Temp Pulse Resp BP Pulse Ox
98.6 F 79 18 119/63 96
12/10/23 08:00 12/10/23 10:07 12/10/23 08:00 12/10/23 10:07 12/10/23 09:02
Intake & Output
12/08/23 12/09/23 12/10/23 12/11/23
06:59 06:59 06:59 06:59
Intake Total 722.1 / 977.1 915 / 915 1311.6 / 1311.6 26.7 / 26.7
Output Total 1390 / 1390 2170 / 2170 175 / 175
Balance -667.9 / -412.9 -1255 / -1255 1136.6 / 1136.6 26.7 / 26.7
Physical Exam
Physical Exam
GEN: No distress, awake, Ox3
HEENT: supple, anicteric, mmm
LUNGS: CTA, no wheezes/rales
CV: Reg, S1/S2, no rub
ABD: soft, BS+, NT/ND
EXT: No edema
NEURO: Gross non-focal
SKIN: sternotomy
[2023-12-10 11:23] LABS: Glucose - Point of Care 107 mg/dl (70-99)
--- NOTE | 2023-12-10 11:56 | PTCARENOTE ---
pt resting OOB in chair. vss. no changes in assessment. amio gtt off
[2023-12-10] MEDS: NSS IV (13:14)
--- NOTE | 2023-12-10 16:00 | PTCARENOTE ---
right IJ cordis dced. pt ambulated in room without difficulty. NSR on telemetry. 95% on room air. no changes in assessment noted.
[2023-12-10 16:34] LABS: Glucose - Point of Care 122 mg/dl (70-99)
[2023-12-10] MEDS: COUMADIN 7.5 MG PO (17:09)
--- NOTE | 2023-12-10 18:13 | W.PN.UPDATE ---
Update Note
Progress Note Update
No further AF. Amio infusion discontinued and oral Amiodarone 200mg TID continued. Coumadin 7.5mg ordered for INR 1.8 with goal of 2-3 for On-X mechanical AVR. Insulin infusion discontinued and Metformin/Jardiance added by diabetes management UTILITIES GROUND WORKER for
newly diagnosed Type2 DM.
--- NOTE | 2023-12-10 19:34 | PTCARENOTE ---
Pt received from outgoing RN, pt oob in a chair aaox4, vss, RA, cpap qhs, PIV, pain management. Pt oriented to the unit, rn will continue to follow pt care.
[2023-12-11 00:07] VITALS: BP 110/68
--- NOTE | 2023-12-11 00:17 | PTCARENOTE ---
Pt reassessment unchanged from previous, vss, resting in bed on cpap for frances, no c/o pain, NSR.
[2023-12-11 03:34] VITALS: BP 132/77
[2023-12-11] MEDS: ROXICODONE 5 MG PO (03:39)
[2023-12-11 03:45] VITALS: BMI 51.5
--- NOTE | 2023-12-11 03:46 | PTCARENOTE ---
pt reassessment unchanged from previous, vss, delon heath in a chair, AM wt 144.7kg, labs collected, pain management with oxy 5mg.
[2023-12-11 03:48] LABS: Hematocrit 33.4 % (39.0-52.0); Hemoglobin 11.6 g/dL (13.0-18.0); Mean Corp Hgb Conc. 34.7 g/dL (33.0-37.0); Mean Corpuscular Hgb 30.2 pg (27.0-31.0); Mean Platelet Volume 9.9 fL (7.4-10.4); Platelet Count 336 10^3/uL (130-400); Red Blood Cell Count 3.84 10^6/uL (4.70-6.10); Red Cell Dist. Width 13.8 % (11.5-14.5); White Blood Cell Count 16.1 10^3/uL (4.8-10.8)
[2023-12-11 04:09] LABS: Blood Urea Nitrogen 25 mg/dl (9-20); Calcium 8.8 mg/dl (8.4-10.2); Carbon Dioxide 29 mmol/L (22-30); Chloride 98 mmol/L (98-107); Estimated Creatinine Clearance > 125 ml/min; Glucose 114 mg/dl (70-99); Magnesium 2.4 mg/dl (1.6-2.3); Potassium 4.2 mmol/L (3.5-5.1); Sodium 134 mmol/L (135-145); eGFR > 60.00
[2023-12-11 04:42] LABS: INR 2.45; PT 26.5 Sec (11.4-14.6)
--- NOTE | 2023-12-11 05:45 | W.PN.CT ---
Today's Communication / Plan
-
-pod #4
-no issues overnight, remains in NSR
-got 7.5 mg of Coumadin past 3 days for mechan. AVR. INR today 2.45
-continue to ambulate
-anticipate discharge in next 24 hours.
Assessment / Plan
-
Severe bicuspid (p/m 80.5/45.6 on TTE, 68 on LHC) s/p AVR #25 [place] and redo AVR #[address] Brown 12/07/23 POD #4
Post LARRY: well seated AVR without AI/PVL, mean gradient 11 mmHg, normal BiV function
-Severe concentric LVH
-HTN
-HLD
-Newly Dx T2DM, A1C 7.3%
-morbid obesity
-HAMMAD/CPAP
-Low testosterone
-RH fracture
-LW fracture
-headaches
-EtoH use
-Former tobacco use
-Acute post op pain
-Acute postop blood loss anemia- stable without transfusion
-Acute postop atelectasis
-Acute postop hypovolemia with subsequent hypervolemia
Subjective
Procedure
s/p AVR #25 [place] and redo AVR #[address] Brown on 12/07/23
-
Date of Service: December 11, 2023
Objective Data
-
Lab Results
12/11/23 03:36
12/11/23 03:36
PT 26.5 Sec (11.4-14.6) H 12/11/23 04:05
INR 2.45 12/11/23 04:05
APTT 29.5 Sec (23.4-35.0) 12/07/23 14:21
Vital Signs
Vital Signs
Temp Pulse Resp BP Pulse Ox
98.2 F 88 22 132/77 96
12/11/23 03:34 12/11/23 03:34 12/11/23 03:34 12/11/23 03:34 12/11/23 03:34
CT Intake/Output/Weight
12/10/23 12/10/23 12/11/23
06:59 18:59 06:59
Intake Total 923.6 / 1311.6 986.7 / 986.7
Output Total 850 / 850
Balance 923.6 / 1136.6 986.7 / 136.7 -850 / 136.7
SaO2: 96
Physical Exam
-
General: AOx3
Cardiovascular: Regular rate & rhythm
Sternum: Stable
Incision: Clean, Dry and Intact
Extremities: No Edema
Data Reviewed
-
Lab Results: Results Reviewed
[2023-12-11] MEDS: TYLENOL 1000 MG PO (06:16)
[2023-12-11 07:30] VITALS: BP 167/65
[2023-12-11 07:33] LABS: Glucose - Point of Care 129 mg/dl (70-99)
[2023-12-11] MEDS: LIDOCAINE 4% PATCH 1 PATCH TOPICAL (07:47)
[2023-12-11] MEDS: NEURONTIN 200 MG PO (07:48)
[2023-12-11] MEDS: COZAAR 100 MG PO (07:48)
[2023-12-11] MEDS: PACERONE 200 MG PO (07:48)
[2023-12-11] MEDS: SENOKOT-S 1 TABLET PO (07:48)
[2023-12-11] MEDS: LOPRESSOR 75 MG PO (07:48)
[2023-12-11] MEDS: PROTONIX 40 MG PO (07:49)
[2023-12-11] MEDS: LOW STRENGTH ASPIRIN 81 MG PO (07:49)
[2023-12-11] MEDS: GLUCOPHAGE 500 MG PO (07:49)
[2023-12-11] MEDS: JARDIANCE 10 MG PO (07:49)
[2023-12-11] MEDS: ZYRTEC 10 MG PO (07:49)
[2023-12-11] MEDS: BACTROBAN 2% OINTMENT 1 APPLIC NASAL (07:49)
--- NOTE | 2023-12-11 07:51 | W.DCSUMMARY ---
Discharge Summary
Discharge Data
Date of Admission: 12/07/23
Date of Discharge: 12/11/23
-
Pending Results: No
Hospital Course
Primary care physician: Edwar Sandoval
Outpatient top collar maker: Sukh Guzman
Inpatient consultants: [facility], Diabetes CAMPAIGN WORKER
Procedures:
1. Aortic valve replacement (mechanical)
Primary Diagnosis:
1. Bicuspid aortic valve with severe aortic stenosis
Secondary Diagnoses:
1. Morbid obesity (BMI greater than 50kg/m2)
2. Hypertension
3.� Hyperlipidemia
4.� Newly diagnosed diabetes (A1c 7.3)
5.� Obstructive sleep apnea with CPAP use
6.� Postoperative paroxysmal atrial fibrillation
HPI: Lionel Dumont is a 53-year-old male who was electively admitted on 12/07/2023 for aortic valve replacement due to bicuspid valve with severe aortic stenosis
Hospital course: Patient underwent aortic valve replacement with # 25 mm On-X valve with Dr. Avery Brown. Significant circumferential calcifications of the annulus required extensive annular debridement. Small echo density on LARRY and aortic valve
downsized to a #23 mm On-X mechanical valve. Postprocedure LARRY reported an ejection fraction of 55%. Aortic valve mean gradient was 11 mmHg. Patient received no intraoperative blood products. Patient returned to CVICU on Levophed, insulin, and
Precedex. Patient was extubated at 7 PM and weaned off Levophed. Anticoagulation with Coumadin was initiated on postoperative day #1 with goal INR of 2�3. Chest tubes were removed on postoperative day 2. Patient developed paroxysmal atrial
fibrillation with rapid ventricular response that was treated with IV amiodarone infusion, followed by oral amiodarone and increase of beta-israel dosage. Patient converted to sinus rhythm later that day and remained in sinus until discharge.
Patient was evaluated by the diabetes nurse practitioner for newly diagnosed diabetes. Insulin infusion was weaned off and metformin plus Jardiance were initiated. Patient was instructed on the use of ZanbatoGen blood glucose monitor.
Losartan was increased to home dose prior to discharge. Temporary ventricular pacing wires were clipped to skin level. Retained wires were not intact ability to obtain MRI in the future if needed. Patient underwent pre-discharge 2 view chest
x-ray which reported no pleural effusion or pneumothorax. Patient will be discharged home on oral amiodarone 200 mg twice daily due to postoperative A-fib and Coumadin 5 mg daily (INR 2.45 today after 3 doses of 7.5mg) with pro time/INR follow-up
on 12/13/23 by transitional nurses.
Home medication changes:
Stop metoprolol 25mg daily
See detailed meds below
Discharge Plan
-
Patient Disposition: Home (Routine Discharge)
Discharge Diagnosis/Procedures: CABG
Condition: Good
Diet: Low Cholesterol, Low Sodium and Diabetic, Carb Controlled
Activity: No strenuous activity
Driving Restrictions: Not until seen by your Dr
Bathing Restrictions: OK to Shower
Blood Work: protime/INR on Tuesday 12/12
Other Services: Cardiac Rehab
Specialty Instructions: Weigh Daily- Call MD for wt gain/loss 3 lbs overnight/5 lbs in 1 week
Referrals:
CT Transitional Care Nurse [Outside] (The Cardiothoracic Transitional Care Nurse will call you to set up a visit in 1-2 days.)
[facility] [Outside] (Please call [facility] to schedule your first orientation appt following hosiptal discharge at: [phone].)
Edwar Sandoval DO [Family Provider] -
Ankush Steinberg MD [Active] - in four to six weeks (Obtain CPAP SmartCard Compliance download report on office visit day.)
Avery Brown MD [Active] - 01/10/24 1:30 pm
Sukh Guzman DO [Affiliate] - 02/02/24 3:00 pm
Prescriptions:
New
acetaminophen 325 mg Tablet
650 mg PO Q4HPRN PRN (Reason: mild pain,headache,temp >101F ) Qty: 0 0RF
pantoprazole 40 mg Tablet,Delayed Release (Dr/Ec)
40 mg PO DAILY Qty: 30 2RF
Jardiance 10 mg Tablet
10 mg PO DAILY Qty: 30 1RF
metformin 500 mg Tablet
500 mg PO BID@0800,1700 Qty: 60 1RF
amiodarone 200 mg tablet
200 mg PO BID Qty: 60 1RF
gabapentin 100 mg Capsule
200 mg PO TID Qty: 30 0RF
oxycodone 5 mg Tablet
5 mg PO Q6HPRN PRN (Reason: severe pain) Qty: 20 0RF
warfarin [Jantoven] 5 mg tablet
5 mg PO QPM Qty: 30 1RF
metoprolol tartrate 50 mg Tablet
75 mg PO BID Qty: 60 1RF
Continued
aspirin 81 mg Tablet,Chewable
81 mg DAILY
losartan 100 mg Tablet
100 mg PO DAILY
cetirizine [Zyrtec] 10 mg Tablet
10 mg PO DAILY
furosemide [Lasix] 20 mg tablet
20 mg PO DAILY Qty: 90 5RF
Discontinued
metoprolol succinate 25 mg Tablet Extended Release 24 Hr
25 mg PO DAILY
Discharge Orders:
Discharge Patient (As Directed); Ordered 12/11/23
Ordered By: Fani Pimentel
Care Plan Goals
Care Plan Goals:
Problem: Readiness for enhanced knowledge related to diagnosis and treatment plan
Goal: Understand your diagnosis and treatment plan needs, including medications if applicable.
Instructions: Know your diagnosis, underlying causes and treatment plan options, including medications if applicable. Consult with your health care team to learn about your diagnosis and treatment plan, including medications if applicable.
Discharge Date and Time
Print Language: GERMAN
--- NOTE | 2023-12-11 07:53 | PTCARENOTE ---
Patient received from director sterile processing resting oob in chair awaiting breakfast. NSR via cm SaO2 @ 95% on RA. Epicardial V-wire insulated to chest wall. All procedural sites stable. Plan of care for the day discussed including possible d/c home today,
patient in agreement. See work list for full assessment and interventions performed.
[2023-12-11] MEDS: NSS IV (08:21)
--- NOTE | 2023-12-11 09:36 | W.PN.CARDCBS ---
Today's Communication / Plan
-
Remains in sinus rhythm and doing well.
Continue Coumadin, metoprolol, and amiodarone.
Okay for discharge.
Impression / Plan
-
Primary Media Relations Specialist: Dr. Guzman of [facility]
Assessment:
Atrial fibrillation: New post op
Severe bicuspid s/p mechanical AVR 12/07/23: On-X 23 mm valve
Post op anemia
Normal coronary arteries by preop cath
HTN
Severe conc LVH
Obesity
HAMMAD on CPAP
Diabetes
ECHO 10/21/2023: EF 55 to 60%, severe concentric LVH, normal RV function, severe with peak/mean gradients 80/45 mmHg with FLACO 1.0 cm�
Plan:
-Remains in sinus rhythm. Continue metoprolol 100 mg p.o. twice daily. Continue Coumadin. INR 2.5.
-Continue amiodarone
-Diabetic RETAIL SALES TEAMMATE has been consulted. Will need initiation of therapy
-Continue losartan at 100 mg daily.
Progress Note - Media Relations Specialist
Subjective
Date of Service: December 11, 2023
Remains in sinus rhythm. Overall feels well.
Objective
Labs:
12/11/23 03:36
12/11/23 03:36
Labs
Hgb 11.6 g/dL (13.0-18.0) L 12/11/23 03:36
Hct 33.4 % (39.0-52.0) L 12/11/23 03:36
Plt Count 336 10^3/uL (130-400) D 12/11/23 03:36
PT 26.5 Sec (11.4-14.6) H 12/11/23 04:05
INR 2.45 12/11/23 04:05
APTT 29.5 Sec (23.4-35.0) 12/07/23 14:21
Sodium 134 mmol/L (135-145) L 12/11/23 03:36
Potassium 4.2 mmol/L (3.5-5.1) 12/11/23 03:36
BUN 25 mg/dl (9-20) H 12/11/23 03:36
Creatinine 0.8 mg/dL (0.7-1.3) 12/11/23 03:36
Glucose 114 mg/dl (70-99) H 12/11/23 03:36
Vital Signs and I&O:
Vital Signs
Temp Pulse Resp BP Pulse Ox
98.6 F 93 19 167/65 95
12/11/23 07:38 12/11/23 08:00 12/11/23 07:38 12/11/23 07:48 12/11/23 07:51
Vital Signs
Temp Pulse Resp BP Pulse Ox
98.6 F 93 19 167/65 95
12/11/23 07:38 12/11/23 08:00 12/11/23 07:38 12/11/23 07:48 12/11/23 07:51
Intake & Output
12/09/23 12/10/23 12/11/23 12/12/23
06:59 06:59 06:59 06:59
Intake Total 915 / 915 1311.6 / 1311.6 986.7 / 986.7 240 / 240
Output Total 2170 / 2170 175 / 175 850 / 850
Balance -1255 / -1255 1136.6 / 1136.6 136.7 / 136.7 240 / 240
Physical Exam
Physical Exam
GEN: No distress, awake, Ox3
HEENT: supple, anicteric, mmm
LUNGS: CTA, no wheezes/rales
CV: Reg, S1/S2, no murmur/rub
ABD: soft, BS+, NT/ND
EXT: No edema
NEURO: Gross non-focal
SKIN: No rash
[2023-12-11 09:47] VITALS: BP 113/63
--- NOTE | 2023-12-11 11:33 | PTCARENOTE ---
Patient set up to shower, completed and dressed independently. PIV removed. Discharge instructions thoroughly reviewed w/patient and mother, all questions answered. Patient and all belongings transported to private vehicle for d/c home.
== END 2023-12-11 11:34 | disposition home or self-care (01) | DRG 219 ==
LOC: CVICU 04:59
PROVIDERS: Anesthesiology; Clinical Nurse Specialist Acute Care; Physician Assistant Surgical; ADMITTING PHYSICIAN Thoracic Surgery (Cardiothoracic Vascular Surgery); CONSULT PHYSICIAN Internal Medicine Critical Care Medicine; FAMILY PHYSICIAN Family Medicine; OTHER PHYSICIAN Internal Medicine Interventional Cardiology
PROC: B24BZZ4 Ultrasonography of Heart with Aorta, Transesophageal (ICD-10-PCS; 2023-12-07)
PROC: 5A1221Z Performance of Cardiac Output, Continuous (ICD-10-PCS; 2023-12-07)
PROC: 02RF0JZ Replacement of Aortic Valve with Synthetic Substitute, Open Approach (ICD-10-PCS; 2023-12-07)
DX: Q23.1 Congenital insufficiency of aortic valve (principal); J96.22 Acute and chronic respiratory failure with hypercapnia; Z68.43 Body mass index [BMI] 50.0-59.9, adult; D62 Acute posthemorrhagic anemia; J98.11 Atelectasis; E66.01 Morbid (severe) obesity due to excess calories; G47.33 Obstructive sleep apnea (adult) (pediatric); E78.5 Hyperlipidemia, unspecified; I10 Essential (primary) hypertension; E11.9 Type 2 diabetes mellitus without complications; I48.0 Paroxysmal atrial fibrillation; Z79.82 Long term (current) use of aspirin; Z79.899 Other long term (current) drug therapy; Z82.49 Family history of ischemic heart disease and other diseases of the circulatory system; Z82.5 Family history of asthma and other chronic lower respiratory diseases; Z87.891 Personal history of nicotine dependence
CPT/HCPCS: 88305; 88311; 36415; 71045; 71046; 80048; 80053; 81003; 81015; 82248; 82330; 82565; 82805; 82947; 82962; 83036; 83735; 84132; 84302; 84520; 85014; 85018; 85025; 85027; 85049; 85610; 85730; 86850; 86900; 86901; 86920; 87070; 93005; 93312; 93320; 93325; 93880; 94010; 94640; C1713; P9045